=== PATIENT | female | born 1950 | race Caucasian/White ===

== ENCOUNTER → 2018-08-01 09:46 | Outpatient (CLI) | payer MEDICARE, SELFPAY ==
--- NOTE | 2018-08-01 09:49 | BI_ITS ---
MAMMOGRAPHY - BILATERAL SCREENING 3-D CHINTAN SYNTHESIS REASON FOR EXAM: Female, 67 years old. Bilateral Screening 3-D tomosynthesis PERTINENT HISTORY: Asymptomatic. Right breast biopsy 15 years ago. Loss 30 pounds. No significant family history. TECHNIQUE: 2-D mammograms and 3-D Chintan synthesis of the breast (s) were performed. CAD was performed. COMPARISON: 07/31/2017. FINDINGS: The breast composition is composed of scattered fibroglandular density. Scattered benign calcifications are seen. No dense spiculated dominant masses or suspicious microcalcification cluster are identified. No new architectural distortion, asymmetric density, adenopathy, skin thickening or nipple retraction identified. There has been no significant change identified since the prior study. BI/SCREENING MAMM (CAD), BILAT IMPRESSION: No mammographic sign of malignancy. Routine yearly mammograms recommended. ASSESSMENT CATEGORY: BIRADS Category 2: Benign. A letter regarding these results will be sent to the patient by the facility within 30 days. FOLLOW UP RECOMMENDATION: Yearly follow up mammogram recommended. (A) Negative mammographic results should not deter biopsy as a palpable lesion if present should be followed based on clinical grounds and biopsy performed if clinically persistent for 3 months or increasing size. Approximately 10% of breast cancers are not detected by mammography. A normal mammogram should not delay biopsy of a clinically suspicious abnormality. Dense breast tissue may obscure neoplasm. Electronically Signed: Neto Nicole, at 19:59 EDT Tel , Service support ,
--- NOTE | 2018-08-01 10:08 | BD_ITS ---
STUDY: DUAL ENERGY X-RAY ABSORPTIOMETRY / DXA REASON FOR EXAM: Female, 67 years old. Postmenopausal screening TECHNIQUE: Bone Mineral Density (BMD) measurements of lumbar spine and bilateral hips were obtained. COMPARISON: 2001 FINDINGS: Lumbar Spine (L1-L4): g/cm2 (1.010) / T-score (-1.4) / Z-score (0.2) Findings are suggestive of osteopenia with a moderate fracture risk. Left Femur Total: g/cm2 (0.721) / T-score (-2.3) / Z-score (-0.8) Left Femoral Neck: g/cm2 (0.765) / T-score (-2.0) / Z-score (-0.3) Right Femur Total: g/cm2 (0.758) / T-score (-2.0) / Z-score (-0.5) Right Femoral Neck: g/cm2 (0.815) / T-score (-1.6) / Z-score (0.1) The T-Scores on the most recent prior examination were: Lumbar Spine (L1-L4): There has been worsening of bone density since the previous examination. BD/Dexa Bone Density Study IMPRESSION: The patient is considered osteopenic as outlined below according to World Jaziel Organization (WHO) criteria with a moderate fracture risk. There has been worsening of bone density since the previous examination. Reference Information: The T-score is the number of standard deviations above or below the standard which is normal for young adults at their peak bone mineral density. The World Health Organization (WHO) interprets the T-scores as follows: Above -1 Normal bone density Between -1 and -2.5 Osteopenia Equal to / or below -2.5 Osteoporosis As a practical clinical guideline, osteopenia may be graded as follows: Mild -1 through -1.5 Moderate -1.6 through -2.0 Severe -2.1 through -2.4 The Z-score is the number of standard deviations above or below age-matched controls. A Z-score of less than -1.5 would be considered abnormal. References: 1. NIH Osteoporosis and Related Bone Diseases http://www.osteo.org 2. International Society for Clinical Densitometry http://www.iscd.org 3. National Osteoporosis Foundation http://www.nof.org Electronically Signed: Angel Guillermo MD at 10:14 EDT , Service support ,
== END ==
PROVIDERS: Family Provider Family Medicine; PCP Family Medicine; Visit Provider Nurse Practitioner Women's Health
DX: Z12.31 Encounter for screening mammogram for malignant neoplasm of breast (principal); Z78.0 Asymptomatic menopausal state
CPT/HCPCS: 77063; 77067; 77080

== ENCOUNTER → 2019-08-21 11:23 | Outpatient (CLI) | payer MEDICARE, SELFPAY ==
[2019-08-05 10:40] VITALS: BMI 21.5
--- NOTE | 2019-08-21 11:32 | BI_ITS ---
MAMMOGRAPHY - BILATERAL SCREENING REASON FOR EXAM: Female, 68 years old. Routine annual screening examination. PERTINENT HISTORY: Non-contributory. Remote right breast biopsy. TECHNIQUE: Digital bilateral breast chintan (3D mammographic acquisition) in the CC and MLO projections. 2-D mediolateral oblique (MLO) and craniocaudad (CC) views of both breasts were obtained. CAD: Full Field Digital Mammography with Computer Added Detection was performed. COMPARISON: Comparison is made with prior study dated August 01, 2018 and July 31, 2017. FINDINGS: Breast Composition: There are scattered areas of fibroglandular density. There are no dominant masses or suspicious calcifications. No other significant abnormalities are identified. There has been no significant change since the prior study. BI/SCREEN MAMM (CAD) W/CHINTAN BILAT IMPRESSION: Stable bilateral screening mammogram. Yearly follow-up mammogram recommended. (A) ASSESSMENT CATEGORY: BIRADS Category 1: Negative. A letter regarding these results will be sent to the patient by the facility within 30 days. Approximately 10% of breast cancers are not detected by mammography. A normal mammogram should not delay biopsy of a clinically suspicious abnormality. [id number] Electronically Signed: Fazal Mcmillan, at 13:19 EDT , Service support ,
== END ==
PROVIDERS: Family Provider Family Medicine; PCP Family Medicine; Referring Provider Nurse Practitioner Women's Health; Visit Provider Nurse Practitioner Women's Health
DX: Z12.31 Encounter for screening mammogram for malignant neoplasm of breast (principal)
CPT/HCPCS: 77063; 77067

== ENCOUNTER → 2020-08-23 10:19 | Outpatient (CLI) | payer MEDICARE, SELFPAY ==
[2020-05-04 13:33] VITALS: BMI 21.5
--- NOTE | 2020-08-23 10:20 | BI_ITS ---
MAMMOGRAPHY - BILATERAL SCREENING REASON FOR EXAM: Female, 69 years old. Routine annual screening examination. PERTINENT HISTORY: Non-contributory. History of remote right breast biopsy. TECHNIQUE: Digital bilateral breast chintan (3D mammographic acquisition) in the CC and MLO projections. 2-D mediolateral oblique (MLO) and craniocaudad (CC) views of both breasts were obtained. CAD: Full Field Digital Mammography with Computer Added Detection was performed. COMPARISON: Comparison is made with prior study dated 08/21/2019 and 08/01/2018. FINDINGS: Breast Composition: There are scattered areas of fibroglandular density. There are no dominant masses or suspicious calcifications. No other significant abnormalities are identified. There has been no significant change since the prior study. BI/SCREEN MAMM (CAD) W/CHINTAN BILAT IMPRESSION: Stable bilateral screening mammogram. Yearly follow-up mammogram recommended. (A) ASSESSMENT CATEGORY: BIRADS Category 1: Negative. A letter regarding these results will be sent to the patient by the facility within 30 days. Approximately 10% of breast cancers are not detected by mammography. A normal mammogram should not delay biopsy of a clinically suspicious abnormality. [id number] Electronically Signed: Fazal Mcmillan, at 12:19 EDT , Service support ,
== END ==
PROVIDERS: PCP Family Medicine; Referring Provider Nurse Practitioner Women's Health; Visit Provider Nurse Practitioner Women's Health
DX: Z12.31 Encounter for screening mammogram for malignant neoplasm of breast (principal)
CPT/HCPCS: 77063; 77067

== ENCOUNTER → 2020-08-30 11:05 | Outpatient (CLI) | payer MEDICARE, SELFPAY ==
[2020-08-23 10:46] VITALS: BMI 21.0
--- NOTE | 2020-08-30 11:06 | US_ITS ---
STUDY: ULTRASOUND OF THE FEMALE PELVIS - COMPLETE REASON FOR EXAM: Female, 69 years old. LEFT ADNEXAL MASS VS UTERUS LMP: TECHNIQUE: Transabdominal and Transvaginal TECHNICAL QUALITY: Adequate. COMPARISON: None. FINDINGS: The uterus is anteverted and is in a midline position. The uterus measures 6 x 4 x 1.8 cm. Normal uterine cervix. The endometrium measures mm in thickness, and is 1.4 mm. There is an echogenic posterior uterine mass measures 1.7 x 2 x 1.7 cm most likely represent a fibroid. There is no demonstrated myometrial mass. I.U.D. - The patient does not have an I.U.D. The right ovary is visualized. The right ovary measures 2.1 x 1.5 x 2.8 cm. There is no right ovarian cyst or ovarian mass. There is no visualized right adnexal mass or complex lesion. There is normal arterial and normal venous vascularity. The left ovary is not visualized. There is no fluid in the cul-de-sac. US/Pelvic (Non ) IMPRESSION: There is an echogenic posterior uterine mass measures 1.7 x 2 x 1.7 cm most likely represent a fibroid. Electronically Signed: Joni Fink, at 8:01 EST Tel , Service support ,
--- NOTE | 2020-08-30 11:06 | US_ITS ---
STUDY: ULTRASOUND OF THE FEMALE PELVIS - COMPLETE REASON FOR EXAM: Female, 69 years old. LEFT ADNEXAL MASS VS UTERUS LMP: TECHNIQUE: Transabdominal and Transvaginal TECHNICAL QUALITY: Adequate. COMPARISON: None. FINDINGS: The uterus is anteverted and is in a midline position. The uterus measures 6 x 4 x 1.8 cm. Normal uterine cervix. The endometrium measures mm in thickness, and is 1.4 mm. There is an echogenic posterior uterine mass measures 1.7 x 2 x 1.7 cm most likely represent a fibroid. There is no demonstrated myometrial mass. I.U.D. - The patient does not have an I.U.D. The right ovary is visualized. The right ovary measures 2.1 x 1.5 x 2.8 cm. There is no right ovarian cyst or ovarian mass. There is no visualized right adnexal mass or complex lesion. There is normal arterial and normal venous vascularity. The left ovary is not visualized. There is no fluid in the cul-de-sac. US/Transvaginal Non- IMPRESSION: There is an echogenic posterior uterine mass measures 1.7 x 2 x 1.7 cm most likely represent a fibroid. Electronically Signed: Joni Fink, at 8:01 EST Tel , Service support ,
== END ==
PROVIDERS: PCP Family Medicine; Referring Provider Nurse Practitioner Women's Health; Visit Provider Nurse Practitioner Women's Health
DX: N94.89 Other specified conditions associated with female genital organs and menstrual cycle (principal)
CPT/HCPCS: 76830; 76856

== ENCOUNTER → 2021-08-24 12:13 | Outpatient (CLI) | payer MEDICARE, SELFPAY ==
--- NOTE | 2021-08-24 12:16 | BI_ITS ---
MAMMOGRAPHY - BILATERAL SCREENING REASON FOR EXAM: Female, 70 years old. Routine annual screening examination. PERTINENT HISTORY: Non-contributory. TECHNIQUE: Digital bilateral breast chintan (3D mammographic acquisition) in the CC and MLO projections. 2-D mediolateral oblique (MLO) and craniocaudad (CC) views of both breasts were obtained. CAD: Full Field Digital Mammography with Computer Added Detection was performed. COMPARISON: Comparison is made with prior study 08/23/2020 and 08/21/2019. FINDINGS: Breast Composition: There are scattered areas of fibroglandular density. There are no dominant masses or suspicious calcifications. No other significant abnormalities are identified. There has been no significant change since the prior study. BI/SCRN MAMM (CAD)W/CHINTAN BILAT IMPRESSION: Stable bilateral screening mammogram. Yearly follow-up mammogram recommended. (A) ASSESSMENT CATEGORY: BIRADS Category 1: Negative. A letter regarding these results will be sent to the patient by the facility within 30 days. Approximately 10% of breast cancers are not detected by mammography. A normal mammogram should not delay biopsy of a clinically suspicious abnormality. [id number] Electronically Signed: Fazal Mcmillan MD at 14:26 EDT , Service support ,
== END ==
PROVIDERS: PCP Family Medicine; Referring Provider Nurse Practitioner Women's Health; Visit Provider Nurse Practitioner Women's Health
DX: Z12.31 Encounter for screening mammogram for malignant neoplasm of breast (principal)
CPT/HCPCS: 77063; 77067

== ENCOUNTER → 2021-08-31 12:23 | Outpatient (CLI) | payer MEDICARE, SELFPAY ==
--- NOTE | 2021-08-31 12:26 | US_ITS ---
STUDY: ULTRASOUND OF THE FEMALE PELVIS - COMPLETE REASON FOR EXAM: Female, 70 years old. Adnexal mass left LMP: Patient is postmenopausal. TECHNIQUE: Transabdominal and Transvaginal TECHNICAL QUALITY: Adequate. COMPARISON: Comparison is made with prior examination dated 08/30/2020. FINDINGS: The uterus is anteverted and is in a midline position. The uterus measures 5.2 cm x 3.7 cm x 2 cm. Normal uterine cervix. The endometrium is slightly thickened and measures 2.7 mm in thickness, and is hyperechoic. . A tiny trace of endometrial fluid is seen. There is no demonstrated endometrial mass. There is a 1.9 cm x 2.1 cm x 1.8 cm posterior uterine fibroid. There is also evidence of a 3 mm x 3 mm x 2 mm cystic nodule adjacent to the endometrium. I.U.D. - The patient does not have an I.U.D. The right ovary is non-visualized. The left ovary is visualized. The left ovary measures 1.4 cm x 1.1 sign of by 1.4 cm. There is no left ovarian cyst or ovarian mass. There is no visualized left adnexal mass or complex lesion. There is normal arterial and normal venous vascularity. There is no fluid in the cul-de-sac. The pre void volume of the bladder was 392 ml. US/Pelvic (Non ) IMPRESSION: Mildly thickened endometrium. Small trace of fluid is seen within the endometrial cavity. 1.9 cm x 2.1 cm x 1.8 cm posterior uterine fibroid. There is evidence of a 3 mm x 3 mm x 2 mm cystic nodule adjacent to the endometrium. Electronically Signed: Fazal Mcmillan MD at 15:04 EDT , Service support ,
--- NOTE | 2021-08-31 12:26 | US_ITS ---
STUDY: ULTRASOUND OF THE FEMALE PELVIS - COMPLETE REASON FOR EXAM: Female, 70 years old. Adnexal mass left LMP: Patient is postmenopausal. TECHNIQUE: Transabdominal and Transvaginal TECHNICAL QUALITY: Adequate. COMPARISON: Comparison is made with prior examination dated 08/30/2020. FINDINGS: The uterus is anteverted and is in a midline position. The uterus measures 5.2 cm x 3.7 cm x 2 cm. Normal uterine cervix. The endometrium is slightly thickened and measures 2.7 mm in thickness, and is hyperechoic. . A tiny trace of endometrial fluid is seen. There is no demonstrated endometrial mass. There is a 1.9 cm x 2.1 cm x 1.8 cm posterior uterine fibroid. There is also evidence of a 3 mm x 3 mm x 2 mm cystic nodule adjacent to the endometrium. I.U.D. - The patient does not have an I.U.D. The right ovary is non-visualized. The left ovary is visualized. The left ovary measures 1.4 cm x 1.1 sign of by 1.4 cm. There is no left ovarian cyst or ovarian mass. There is no visualized left adnexal mass or complex lesion. There is normal arterial and normal venous vascularity. There is no fluid in the cul-de-sac. The pre void volume of the bladder was 392 ml. US/Transvaginal Non- IMPRESSION: Mildly thickened endometrium. Small trace of fluid is seen within the endometrial cavity. 1.9 cm x 2.1 cm x 1.8 cm posterior uterine fibroid. There is evidence of a 3 mm x 3 mm x 2 mm cystic nodule adjacent to the endometrium. Electronically Signed: Fazal Mcmillan MD at 15:04 EDT , Service support ,
== END ==
PROVIDERS: PCP Family Medicine; Referring Provider Nurse Practitioner Women's Health; Visit Provider Nurse Practitioner Women's Health
DX: N94.89 Other specified conditions associated with female genital organs and menstrual cycle (principal)
CPT/HCPCS: 76830; 76856

== ENCOUNTER → 2022-08-30 | Outpatient (CLI) | payer MEDICARE, SELFPAY ==
--- NOTE | 2022-08-30 08:40 | BI_ITS ---
MAMMOGRAPHY - BILATERAL SCREENING REASON FOR EXAM: Female, 71 years old. Routine annual screening examination. PERTINENT HISTORY: Non-contributory. Remote right breast biopsy. TECHNIQUE: Digital bilateral breast chintan (3D mammographic acquisition) in the CC and MLO projections. 2-D mediolateral oblique (MLO) and craniocaudad (CC) views of both breasts were obtained. CAD: Full Field Digital Mammography with Computer Added Detection was performed. COMPARISON: Comparison is made with prior study 08/24/2021 and 08/23/2020. FINDINGS: Breast Composition: The breasts are heterogeneously dense, which may obscure small masses. There are no dominant masses or suspicious calcifications. No other significant abnormalities are identified. There has been no significant change since the prior study. BI/SCRN MAMM (CAD)W/CHINTAN BILAT IMPRESSION: Stable bilateral screening mammogram. Yearly follow-up mammogram recommended. (A) ASSESSMENT CATEGORY: BIRADS Category 1: Negative. A letter regarding these results will be sent to the patient by the facility within 30 days. Approximately 10% of breast cancers are not detected by mammography. A normal mammogram should not delay biopsy of a clinically suspicious abnormality. [id number] Electronically Signed: Fazal Mcmillan MD at 9:26 EDT ,
== END | disposition home or self-care (01) ==
LOC: OPBI 08:39
PROVIDERS: PCP Family Medicine; Visit Provider Nurse Practitioner Women's Health
DX: Z12.31 Encounter for screening mammogram for malignant neoplasm of breast (principal)
CPT/HCPCS: 77063; 77067

== ENCOUNTER 2023-01-02 12:03 | Emergency (ER) | payer MEDICARE, SELFPAY ==
[2023-01-02 12:05] VITALS: BP 106/40; PULSE 58; RESP 18; TEMP 36.6; O2SAT 100
[2023-01-02 12:19] VITALS: PULSE 61; RESP 10; O2SAT 98; BMI 19.8
--- NOTE | 2023-01-02 12:38 | EKG12_ITS ---
Test Reason : SYNCOPE Blood Pressure : / mmHG Vent. Rate : 059 BPM Atrial Rate : 059 BPM P-R Int : 198 ms QRS Dur : 096 ms QT Int : 436 ms P-R-T Axes : 046 044 -77 degrees QTc Int : [address] & T wave abnormality, consider inferior ischemia ST & T wave abnormality, consider anterolateral ischemia Abnormal ECG Confirmed by AILYN REID, CHELSEA ([id number]), editor news GARFIELD MAYFIELD ([id number]) on 01/04/2023 8:57:25 AM Referred By: Confirmed By:CHELSEA ROBERTSON MD
--- NOTE | 2023-01-02 12:39 | EDS_ITS ---
HPI History of Present Illness Chief Complaint: Syncope Informant: patient, spouse/S.O. (daughter) and EMS Onset/Context/Timing Onset: Today (JPTA) Context: Gradual Onset Timing: Continuous Quality: lightheaded, followed by syncope Narrative Narrative: Patient has syncopal episode. She was helping out at her daughter's work, cooking in the kitchen when this happened. She was cooking spaghetti over the stove and had been standing there for 45 or 60 minutes. She felt lightheaded, and her daughter had her sit down in a chair, which is where she was when she then passed out shortly thereafter. She was in and out of consciousness for 5 or 10 minutes, they got her out of the chair and laid her on the floor. There was no fall or injury. After 10 to 15 minutes total, she came back to and then basically gradually came around and is back to normal right now. EMS was called initially, they did a blood sugar it was 117, she is a diabetic type II. She denies any other prodromal symptoms other than lightheadedness. She denies any headache, vision changes, focal neurologic symptoms, chest pain, shortness of breath, nausea, or sweating. She states she has a sore throat that has been there for about 3 days, she states she is very poor at remembering to drink water, and since her throat has been bothering her she has been drinking even the last including this morning. She presents here around noon. In addition she has chronic low back pain, she states whenever she stands for an extended period of time, her back ends up hurting her more and she needs to rest, she does recall that hurting prior to sitting down in the chair, it is not bothering her that much right now. She denies any numbness in her lower extremities. [facility] Medical History Hypertension pre diabetic Home Medications calcium citrate 315 mg-vitamin D3 5 mcg (200 unit) tablet (Calcium Citrate + D) 1 tab PO TID 07/29/18 [History Last Taken Unknown] diltiazem HCl 240 mg capsule,extended release 24 hr (Cardizem CD) 240 mg PO DAILY 07/29/18 [History Last Taken Unknown] hydrochlorothiazide 25 mg tablet 25 mg PO DAILY 07/29/18 [History Last Taken Unknown] lisinopril 40 mg tablet 40 mg PO DAILY 07/29/18 [History Last Taken Unknown] metformin 500 mg tablet 500 mg PO BID 07/29/18 [History Last Taken Unknown] metoprolol tartrate 25 mg tablet 25 mg PO BID 07/29/18 [History Last Taken Unknown] pravastatin 40 mg tablet (Pravachol) 40 mg PO DAILY 07/29/18 [History Last Taken Unknown] Allergy/AdvReac Type Severity Reaction Status Date / Time No Known Allergies Allergy Verified 01/02/23 12:10 Family History Father Myocardial infarction Surgical History H/O eye surgery Social History Smoking Status: Never smoker alcohol intake: current alcohol intake frequency: holidays/special occasions only substance use type: does not use caffeine: Yes what type of physical activity do you participate in: none seatbelt use: always do you feel safe at home: Yes additional social history: Julissa loving are retired ROS ROS ED Constitutional Constitutional ED: Denies chills or fever(s) Eyes Eyes: Denies change in vision or diplopia ENT ENT ED: Reports sore throat; Denies rhinorrhea Cardiovascular Cardiovascular: Reports syncope; Denies chest pain or palpitations Respiratory/Chest Respiratory/Chest: Denies cough or dyspnea Gastrointestinal Gastrointestinal: Denies abdominal pain, diarrhea, nausea or vomiting Genitourinary Genitourinary ED: Denies dysuria or hematuria Musculoskeletal Musculoskeletal: Reports as per HPI and back pain; Denies neck pain Integumentary Denies abscess or rash Neurologic Neurologic: Denies headache(s), paresthesias or weakness Psychiatric Psychiatric: Denies anxiety or suicidal thoughts EXAM Physical Exam Const Vital Signs: 01/02/23 12:05 01/02/23 12:19 01/02/23 12:19 Temperature 97.8 F Temperature Source Temporal Pulse Rate 58 L 61 Respiratory Rate 18 10 L Respiratory Effort Normal Non-Labored Blood Pressure 106/40 L Blood Pressure Mean 62 Pulse Ox 100 98 Oxygen Delivery Method Room Air Room Air 01/02/23 13:02 01/02/23 13:35 01/02/23 15:11 Temperature Temperature Source Pulse Rate 59 L 63 66 Respiratory Rate 17 18 16 Respiratory Effort Blood Pressure 107/53 L 106/53 L 109/55 L Blood Pressure Mean 71 70 73 Pulse Ox 98 97 95 Oxygen Delivery Method Room Air Room Air Room Air Positive well nourished and well developed Constitutional Narrative: Thin. Well-appearing. Conversive in full sentences. General Appearance ED: well developed and NAD HEENT Reports moist mucous membranes HEENT Narrative: Posterior oropharynx normal without exudates, erythema, petechiae, or asymmetry. No trismus. normocephalic and atraumatic Eyes PERRL and EOMs intact bilaterally Neck full ROM, no lymphadenopathy and supple Resp normal respiratory effort and clear to auscultation bilaterally Cardio regular rate, regular rhythm and no murmurs Rate: other Other Details: Borderline bradycardia with heart rate at 60 GI non-tender and non-distended Auscultation: normoactive bowel sounds Palpation: soft Back/Spine no CVA tenderness General Back: other FROM Extremity normal to inspection General Extremety ED: Negative for edema, pulses abnormal or tenderness General Extremity: Negative for edema or pulses abnormal Neuro oriented x3, CN's II-XII intact bilaterally and no sensory deficits noted Neuro Narrative: Normal [id number] and [id number] bilaterally. Sensorium / Orientation: awake and alert Motor Exam: strength 5/5 throughout Psych mental status grossly normal Skin no rashes or lesions noted and no wounds MDM MDM MDM Narrative Medical decision making narrative: Patient's throat looks normal, but we have been seeing a lot of patients with COVID start with a sore throat with the current variants. Although there is not a surge right now, I did a rapid test on her and it is positive consistent with COVID-19. She was given a liter of IV fluid, she does have a little renal insufficiency but I do not know if this is new or not since I do not have old labs on her. Potassium was a little low so she was given some oral replacement for that. Her initial EKG shows some nonspecific abnormalities but I do not have an old one to compare it with, troponin initially is normal, this was later repeated for a delta because of her subtle EKG abnormalities. If negative, plan is for discharge home with supportive care for her COVID, she is fully vaccinated and not likely to be in danger, and she is not dyspneic or having any chest discomfort to suggest pulmonary embolus acutely. I really think all of this was related to being borderline dehydrated before she got sick, now more so because her throat is sore and she is drinking less, followed by being over a hot stove and possibly vasodilated. If her second troponin is negative plan is for discharge home. Lab Data Attestation: I reviewed the patient's lab results. Labs: Laboratory Results - last 24 hr 01/02/23 01/02/23 12:47 12:47 WBC 10.0 RBC 4.13 L Hgb 12.4 Hct 37.9 MCV 91.8 MCH 30.0 MCHC 32.7 RDW Std Deviation 45.7 H RDW Coeff of Izzy 13.4 Plt Count 217 MPV 11.6 Immature Gran % (Auto) 0.700 Neut % (Auto) 80.4 H Lymph % (Auto) 12.6 L Robeson % (Auto) 5.7 Eos % (Auto) 0.1 Baso % (Auto) 0.5 Absolute Neuts (auto) 8.0 H Absolute Lymphs (auto) 1.26 Nucleated RBC % 0 Sodium 134 L Potassium 3.3 L Chloride 96 L Carbon Dioxide 26.0 Anion Gap 12 BUN 31 H Creatinine 1.45 H Estim Creat Clear Calc 30.95 Est GFR (MDRD) Af Amer 45 L Est GFR (MDRD) Non-Af 38 L BUN/Creatinine Ratio 21.4 H Glucose 134 H Calcium 9.7 Troponin I High Sens 10 Rhythm Strip Rhythm Strip: Sinus Rhythm Rate: 60 Ectopy: None EKG Initial EKG: Attestation: I personally reviewed and interpreted this EKG as follows: Interpretation: Sinus Rhythm, No Acute Injury Pattern and Non-Specific ST Changes (most leads; inf, sept-lat) Prior: No Prior Discharge Plan Triage Chief Complaint: Syncope ED Provider: Yohan Willis Dx/Rx/DC Orders Clinical Impression: Syncope, COVID-19, Mild dehydration, Hypokalemia Instructions: Coronavirus Disease 2019 (COVID-19): Caring for Yourself or Others, ED Dehydration (Adult) Prescriptions: No Action calcium citrate-vitamin D3 [Calcium Citrate + D] 315-200 mg-unit tablet 1 tab PO TID pravastatin [Pravachol] 40 mg tablet 40 mg PO DAILY hydrochlorothiazide 25 mg tablet 25 mg PO DAILY metformin 500 mg tablet 500 mg PO BID lisinopril 40 mg tablet 40 mg PO DAILY diltiazem HCl [Cardizem CD] 240 mg capsule,extended release 24hr 240 mg PO DAILY metoprolol tartrate 25 mg tablet 25 mg PO BID Primary Care Provider: Shailesh Walters Referrals: Shailesh Walters MD [Primary Care Provider] - 1 Week Disposition Disposition: Home, Self Care
[2023-01-02 13:01] LABS: Absolute Lymphocyte Count 1.26 X10^3/uL (0.83-4.51); Basophil# 0.05 X10^3/uL; Basophil% 0.5 % (0-1); Eosinophil# 0.01 X10^3/uL; Eosinophils% 0.1 % (0-5); Hematocrit 37.9 % (37-47); Hemoglobin 12.4 g/dL (12.0-15.0); Lymphocyte # 1.26 X10^3/ul (0.83-4.51); Lymphocyte % 12.6 % (19-41); Mean Corp Hgb Conc 32.7 g/dL (32-36); Mean Corpuscular Volume 91.8 fL (81-99); Mean Platelet Vol. 11.6 fl (6.2-12.0); Monocyte# 0.57 X10^3/uL; Monocyte% 5.7 % (0-10); NRBC Flagged by Analyzer 0 % (0-5); Neutrophil # 8.02 X10^3/uL (2.7-7.7); Neutrophil % 80.4 % (47-70); Platelet Count 217 K/mm3 (150-450); RBC Distribution Width CV 13.4 % (11.6-14.6); RBC Distribution Width SD 45.7 fl (35.1-43.9); Red Blood Count 4.13 M/mm3 (4.2-5.4)
[2023-01-02 13:02] VITALS: BP 107/53; PULSE 59; RESP 17; O2SAT 98
[2023-01-02] MEDS: 0.9% Normal Saline 1,000 ML 1000 ML IV (13:02)
[2023-01-02 13:22] LABS: Anion Gap 12 (5-15); BUN 31 mg/dL (7-18); BUN/Creat Ratio 21.4 RATIO (10-20); Calcium,Total 9.7 mg/dL (8.5-10.1); Chloride 96 mmol/L (98-107); Creatinine, Serum 1.45 mg/dL (0.55-1.02); EST Glomerular Filtration Rate 38 mL/min (>60); Est Glom Filt Rate - Afr Amer 45 mL/min (>60); Estimated Creatinine Clearance 30.95 ml/min; Glucose 134 mg/dL (74-106); Potassium 3.3 mmol/L (3.5-5.1); Sodium Level 134 mmol/L (136-145); Troponin-I HS (w/2H Reflex) 10 pg/mL (3.0-54.0)
[2023-01-02 13:35] VITALS: BP 106/53; PULSE 63; RESP 18; O2SAT 97
[2023-01-02] MEDS: Potassium Chloride Oral Tablet 20 MEQ 40 MEQ PO (13:53)
[2023-01-02 14:57] LABS: Reflex Troponin-HS? (from REC) Y
[2023-01-02 15:11] VITALS: BP 109/55; PULSE 66; RESP 16; O2SAT 95
[2023-01-02 15:39] LABS: Troponin-I HS 11 pg/mL (3.0-54.0)
[2023-01-02 16:13] VITALS: BP 119/58; PULSE 65; RESP 14; O2SAT 97
== END 2023-01-02 16:25 | disposition home or self-care (01) ==
PROVIDERS: Emergency Provider Emergency Medicine; PCP Family Medicine; Visit Provider Emergency Medicine
DX: U07.1 COVID-19 (principal); E11.9 Type 2 diabetes mellitus without complications; E86.0 Dehydration; E87.6 Hypokalemia; R55 Syncope and collapse; I10 Essential (primary) hypertension
CPT/HCPCS: 80048; 84484; 85025; 87811; 93005; 96360; 99285; J7030; A4216

== ENCOUNTER 2023-08-28 10:22 | Emergency (ER) | payer MEDICARE, SELFPAY ==
[2023-08-28 10:30] VITALS: BP 101/79; PULSE 55; RESP 15; TEMP 35.5; O2SAT 97; BMI 20.4
--- NOTE | 2023-08-28 11:04 | EKG12_ITS ---
Test Reason : SYNCOPE Blood Pressure : / mmHG Vent. Rate : 053 BPM Atrial Rate : 053 BPM P-R Int : 194 ms QRS Dur : 096 ms QT Int : 438 ms P-R-T Axes : 033 036 -26 degrees QTc Int : 410 ms Sinus bradycardia Nonspecific ST and T wave abnormality Abnormal ECG Confirmed by ENZO REID, KELSEA ([id number]), editor producer VICKIE NORTON ([id number]) on 08/29/2023 6:54:43 AM Referred By: Confirmed By:KELSEA GIRALDO MD
--- NOTE | 2023-08-28 11:04 | EX.ED.DYSGE1 ---
HPI History of Present Illness Chief Complaint: Syncope Informant: patient, family and EMS Narrative Narrative: 72-year-old female presenting to the emergency room with a chief complaint of syncope. 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 She was cooking pizza when she began to feel that she needed to have a bowel movement. She states that she excused herself had a successful bowel movement and returned. However she was experiencing some lower abdominal pain. She states her daughter noticed that she looked like she might pass out and asked if she wanted to step out. She sat her down tried to turn off the heat. She states that the room that they were written felt warm. Patient's daughter reports that she looked pale and then her eyes glazed over and she passed out. She did have an episode of emesis. She had a second brief unresponsive episode for EMS. The patient states that the current time she feels quite well. She denies any new medications. She states she took all of her medications today including her blood pressure pills which includes diltiazem HCTZ and lisinopril and metoprolol this morning without eating. Blood sugar was normal for EMS. Patient denies palpitations, heart racing, dyspnea, or chest pain prior or during the events Prehospital EKG demonstrated a normal sinus rhythm without definitive features of ACS. [facility] Medical History Hypertension pre diabetic Home Medications calcium citrate 315 mg-vitamin D3 5 mcg (200 unit) tablet (Calcium Citrate + D) 1 tab PO TID 07/29/18 [History Last Taken Unknown] diltiazem HCl 240 mg capsule,extended release 24 hr (Cardizem CD) 240 mg PO DAILY 07/29/18 [History Last Taken Unknown] hydrochlorothiazide 25 mg tablet 25 mg PO DAILY 07/29/18 [History Last Taken Unknown] lisinopril 40 mg tablet 40 mg PO DAILY 07/29/18 [History Last Taken Unknown] metformin 500 mg tablet 500 mg PO BID 07/29/18 [History Last Taken Unknown] metoprolol tartrate 25 mg tablet 25 mg PO BID 07/29/18 [History Last Taken Unknown] pravastatin 80 mg tablet 80 mg PO DAILY 08/28/23 [History Last Taken Unknown] Allergy/AdvReac Type Severity Reaction Status Date / Time No Known Allergies Allergy Verified 08/28/23 10:24 Family History Father Myocardial infarction Surgical History H/O eye surgery Social History Smoking Status: Never smoker alcohol intake: current alcohol intake frequency: holidays/special occasions only substance use type: does not use caffeine: Yes what type of physical activity do you participate in: none seatbelt use: always do you feel safe at home: Yes additional social history: Dyllan- both are retired ROS ROS ED Constitutional Constitutional ED: Denies chills or weight loss Eyes Eyes: Denies change in vision or diplopia ENT ENT ED: Denies ear pain, rhinorrhea or sore throat Cardiovascular Cardiovascular: Reports other Details: Syncope ; Denies chest pain, orthopnea, palpitations or racing heartbeat Respiratory/Chest Respiratory/Chest: Denies cough, dyspnea or orthopnea Gastrointestinal Gastrointestinal: Reports abdominal pain and vomiting; Denies diarrhea or nausea Genitourinary Genitourinary ED: Denies dysuria, hematuria or urinary frequency Musculoskeletal Musculoskeletal: Denies arthralgias or myalgias Integumentary Denies abscess or rash Neurologic Neurologic: Denies headache(s) or weakness Psychiatric Psychiatric: Denies anxiety, depression, suicidal ideation or suicidal thoughts Endocrine Endocrinology: Denies polydipsia, polyphagia or polyuria Allergic/Immunologic Allergic/Immunologic ED: Denies mouth swelling, tongue swelling or urticaria EXAM Physical Exam Const Vital Signs: 08/28/23 10:30 08/28/23 10:37 08/28/23 11:30 Temperature 96 F L Temperature Source Temporal Pulse Rate 55 L 51 L Respiratory Rate 15 14 Respiratory Effort Normal Non-Labored Respiratory Pattern Normal Blood Pressure 101/79 117/57 L Blood Pressure Mean 86 77 Pulse Ox 97 99 Oxygen Delivery Method Room Air Room Air 08/28/23 11:58 Temperature Temperature Source Pulse Rate 51 L Respiratory Rate 20 H Respiratory Effort Respiratory Pattern Blood Pressure 99/51 L Blood Pressure Mean 67 Pulse Ox 98 Oxygen Delivery Method Room Air Positive well nourished and well developed General Appearance ED: well developed HEENT Reports normocephalic, head/scalp atraumatic and moist mucous membranes Eyes PERRL and EOMs intact bilaterally Neck no lymphadenopathy, supple and no JVD Resp normal respiratory effort and clear to auscultation bilaterally Cardio regular rate, regular rhythm and no murmurs GI normal to inspection, nondistended, normoactive bowel sounds and non-tender Palpation: soft Back/Spine no CVA tenderness and normal ROM Extremity normal to inspection General Extremety ED: Negative for edema General Extremity: Negative for edema Neuro oriented x3 and CN's II-XII intact bilaterally Sensorium / Orientation: alert Motor Exam: strength 5/5 throughout Psych mental status grossly normal Mood & Affect: Negative for depressed or tearful Skin no rashes or lesions noted and no wounds MDM MDM MDM Narrative Medical decision making narrative: My independent interpretation of the chest x-ray is no acute process. Hemoglobin 12.8. BUN of 30 with a creatinine 1.07. Troponin at 6. She has been in a normal sinus rhythm. She is asymptomatic. Based upon the history and the normal exam and essentially normal work-up I think this most likely vasovagal mediated. I recommend following up as needed return if recurrent symptoms or worsening History & Record Review Discussion w/independent historian: EMS personnel, Patient, Family and Significant other Lab Data Attestation: I reviewed the patient's lab results. Labs: Laboratory Results - last 24 hr 08/28/23 10:40 WBC 10.0 RBC 4.10 L Hgb 12.8 Hct 37.9 MCV 92.4 MCH 31.2 MCHC 33.8 RDW Std Deviation 44.5 H RDW Coeff of Izzy 13.1 Plt Count 281 MPV 11.5 Immature Gran % (Auto) 0.500 Neut % (Auto) 66.3 Lymph % (Auto) 24.6 Hamblen % (Auto) 7.2 Eos % (Auto) 0.9 Baso % (Auto) 0.5 Absolute Neuts (auto) 6.7 Absolute Lymphs (auto) 2.47 Nucleated RBC % 0 Sodium 135 L Potassium 3.6 Chloride 102 Carbon Dioxide 27.0 Anion Gap 6 BUN 30 H Creatinine 1.07 H Estim Creat Clear Calc 41.80 Est GFR (MDRD) Af Amer 64 Est GFR (MDRD) Non-Af 53 L BUN/Creatinine Ratio 28.0 H Glucose 131 H Calcium 10.1 Troponin I High Sens 6 EKG Initial EKG: Attestation: I personally reviewed and interpreted this EKG as follows: Comments: Sinus bradycardia with a ventricular rate of 53 bpm. No definitive features of ACS noted Discharge Plan Triage Chief Complaint: Syncope Other Complaint: General Illness ED Provider: Sanjay Ramirez Dx/Rx/DC Orders Clinical Impression: Vasovagal syncope, Abdominal pain Instructions: ED Fainting, Vagal Reaction Prescriptions: No Action calcium citrate-vitamin D3 [Calcium Citrate + D] 315-200 mg-unit tablet 1 tab PO TID hydrochlorothiazide 25 mg tablet 25 mg PO DAILY metformin 500 mg tablet 500 mg PO BID Patient Comments: PATIENT STATES IS TAKING 1 TABLET ONCE PER DAY lisinopril 40 mg tablet 40 mg PO DAILY diltiazem HCl [Cardizem CD] 240 mg capsule,extended release 24hr 240 mg PO DAILY metoprolol tartrate 25 mg tablet 25 mg PO BID pravastatin 80 mg tablet 80 mg PO DAILY Patient Comments: take 1 tablet by mouth once daily Primary Care Provider: Shailesh Walters Referrals: Shailesh Walters MD [Primary Care Provider] - As Needed Disposition Disposition: Home, Self Care
[2023-08-28 11:13] LABS: Absolute Lymphocyte Count 2.47 X10^3/uL (0.83-4.51); Absolute Neutrophil Count 6.7 X10^3/uL (2.0-7.7); Basophil# 0.05 X10^3/uL; Basophil% 0.5 % (0-1); Eosinophil# 0.09 X10^3/uL; Eosinophils% 0.9 % (0-5); Hematocrit 37.9 % (37-47); Hemoglobin 12.8 g/dL (12.0-15.0); Lymphocyte # 2.47 X10^3/ul (0.83-4.51); Lymphocyte % 24.6 % (19-41); Mean Corp Hgb Conc 33.8 g/dL (32-36); Mean Corpuscular Hgb 31.2 pg (27.0-32.0); Mean Corpuscular Volume 92.4 fL (81-99); Mean Platelet Vol. 11.5 fl (6.2-12.0); Monocyte# 0.72 X10^3/uL; Monocyte% 7.2 % (0-10); NRBC Flagged by Analyzer 0 % (0-5); Neutrophil # 6.65 X10^3/uL (2.7-7.7); Neutrophil % 66.3 % (47-70); Platelet Count 281 K/mm3 (150-450); RBC Distribution Width CV 13.1 % (11.6-14.6); RBC Distribution Width SD 44.5 fl (35.1-43.9)
--- NOTE | 2023-08-28 11:25 | RAD_ITS ---
STUDY: X-RAY CHEST REASON FOR EXAM: Female, 72 years old. Syncope TECHNIQUE: Single AP portable view of the chest. COMPARISON: None. FINDINGS: EKG electrodes are seen. The lungs are clear and expanded. There is no demonstrated pleural abnormality. Normal size heart. Normal mediastinum and caitie. Normal visualized pulmonary arteries. There is atherosclerotic calcification of the aortic arch with tortuosity. There is a dextroscoliosis of the thoracic spine. Normal visualized ribs, clavicles, and shoulders. There is no demonstrated abnormality of the visualized soft tissue structures of the upper abdomen. RAD/Chest 1 View (Portable) IMPRESSION: No acute abnormality is seen. Electronically Signed: Fazal Mcmillan MD at 12:42 EDT ,
[2023-08-28 11:30] VITALS: BP 117/57; PULSE 51; RESP 14; O2SAT 99
[2023-08-28 11:30] LABS: Anion Gap 6 (5-15); BUN 30 mg/dL (7-18); Calcium,Total 10.1 mg/dL (8.5-10.1); Chloride 102 mmol/L (98-107); Creatinine, Serum 1.07 mg/dL (0.55-1.02); EST Glomerular Filtration Rate 53 mL/min (>60); Est Glom Filt Rate - Afr Amer 64 mL/min (>60); Glucose 131 mg/dL (74-106); Potassium 3.6 mmol/L (3.5-5.1); Sodium Level 135 mmol/L (136-145); Troponin-I HS 6 pg/mL (3.0-54.0)
[2023-08-28 11:58] VITALS: BP 99/51; PULSE 51; RESP 20; O2SAT 98
[2023-08-28 12:40] VITALS: BP 112/63; PULSE 72; RESP 15; O2SAT 98
== END 2023-08-28 12:41 | disposition home or self-care (01) ==
PROVIDERS: Emergency Provider Emergency Medicine; PCP Family Medicine; Visit Provider Emergency Medicine
DX: R55 Syncope and collapse (principal); R11.10 Vomiting, unspecified; R10.9 Unspecified abdominal pain; I10 Essential (primary) hypertension
CPT/HCPCS: 71045; 80048; 84484; 85025; 93005; 99285

== ENCOUNTER → 2023-09-03 | Outpatient (CLI) | payer MEDICARE, SELFPAY ==
--- NOTE | 2023-09-03 08:38 | BI_ITS ---
MAMMOGRAPHY - BILATERAL SCREENING REASON FOR EXAM: Female, 72 years old. Routine annual screening examination. PERTINENT HISTORY: Non-contributory. Remote right breast biopsy. TECHNIQUE: Digital bilateral breast chintan (3D mammographic acquisition) in the CC and MLO projections. 2-D mediolateral oblique (MLO) and craniocaudad (CC) views of both breasts were obtained. CAD: Full Field Digital Mammography with Computer Added Detection was performed. COMPARISON: Comparison is made with prior study dated August 30, 2022 and August 24, 2021. FINDINGS: Breast Composition: The breasts are heterogeneously dense, which may obscure small masses. There are no dominant masses or suspicious calcifications. No other significant abnormalities are identified. There has been no significant change since the prior study. BI/SCRN MAMM (CAD)W/CHINTAN BILAT IMPRESSION: Stable bilateral screening mammogram. Yearly follow-up mammogram recommended. (A) ASSESSMENT CATEGORY: BIRADS Category 2: Benign. A letter regarding these results will be sent to the patient by the facility within 30 days. Approximately 10% of breast cancers are not detected by mammography. A normal mammogram should not delay biopsy of a clinically suspicious abnormality. [id number] Electronically Signed: Fazal Mcmillan MD at 10:31 EST ,
== END | disposition home or self-care (01) ==
PROVIDERS: PCP Family Medicine; Referring Provider Nurse Practitioner Women's Health; Visit Provider Nurse Practitioner Women's Health
DX: Z12.31 Encounter for screening mammogram for malignant neoplasm of breast (principal)
CPT/HCPCS: 77063; 77067

== ENCOUNTER → 2024-11-24 | Outpatient (CLI) | payer OTHER, SELFPAY ==
--- NOTE | 2024-11-24 08:18 | BI_ITS ---
MAMMOGRAPHY - BILATERAL SCREENING REASON FOR EXAM: Female, 73 years old. Routine annual screening examination. PERTINENT HISTORY: Non-contributory. TECHNIQUE: Digital bilateral breast chintan (3D mammographic acquisition) in the CC and MLO projections. 2-D mediolateral oblique (MLO) and craniocaudad (CC) views of both breasts were obtained. CAD: Full Field Digital Mammography with Computer Added Detection was performed. COMPARISON: Comparison is made with prior study September 03, 2023 and August 30, 2022. FINDINGS: Breast Composition: The breasts are heterogeneously dense, which may obscure small masses. There are no dominant masses or suspicious calcifications. No other significant abnormalities are identified. There has been no significant change since the prior study. BI/SCRN MAMM (CAD)W/CHINTAN BILAT IMPRESSION: Stable bilateral screening mammogram. Yearly follow-up mammogram recommended. (A) ASSESSMENT CATEGORY: BIRADS Category 1: Negative. A letter regarding these results will be sent to the patient by the facility within 30 days. Approximately 10% of breast cancers are not detected by mammography. A normal mammogram should not delay biopsy of a clinically suspicious abnormality. [id number] Electronically Signed: Fazal Mcmillan MD at 8:56 EST ,
== END | disposition home or self-care (01) ==
PROVIDERS: PCP Family Medicine; Referring Provider Nurse Practitioner Women's Health; Visit Provider Nurse Practitioner Women's Health
DX: Z12.31 Encounter for screening mammogram for malignant neoplasm of breast (principal)
CPT/HCPCS: 77063; 77067

== ENCOUNTER 2025-05-26 10:49 | Inpatient (IN) | payer MEDICARE, SELFPAY ==
[2025-05-26] VITALS (9 sets, daily range): BP systolic 105–118; BP diastolic 42–64; PULSE 49–63; RESP 16–18; TEMP 36.5–36.9; O2SAT 93–98; BMI 23.3; BMI 22.3
--- NOTE | 2025-05-26 11:01 | RAD_ITS ---
PROCEDURE: ANKLE 2 VIEWS 05/26/2025 REASON FOR EXAM: TRAUMA TECHNIQUE: ANKLE 2 VIEWS COMPARISON: None FINDINGS: Bones: Mild demineralization. No fracture or suspicious osseous lesion small calcaneal spurs. Joints: Ankle mortise is well-preserved. Soft tissues: No suspicious soft tissue swelling or foreign body Other: RAD/Ankle 2 Views IMPRESSION: Calcaneal spurs, otherwise unremarkable right ankle Reading Location: [id number]
--- NOTE | 2025-05-26 11:01 | RAD_ITS ---
PROCEDURE: HIP, UNI W/ PELVIS 2-3 VIEWS 05/26/2025 REASON FOR EXAM: TRAUMA TECHNIQUE: HIP, UNI W/ PELVIS 2-3 VIEWS FINDINGS: Bones: The bones are demineralized. There is an acute subchondral femoral neck fracture of the right femur with varus angulation and slight displacement. Joints: Arthritic narrowing of the right hip joint consistent with patient's age but no dislocation or subluxation noted. Soft tissues: There is associated soft tissue swelling. Other: No demonstrated fracture or joint space abnormality in the left hip or SI joints. Retained stool noted throughout the colon RAD/HIP, UNI W/ Pelvis 2-3 Views IMPRESSION: Acute, minimally displaced subchondral femoral neck fracture of the right femur with soft tissue swelling. Orthopedic surgery consultation recommended Reading Location: [id number]
--- NOTE | 2025-05-26 11:03 | EDS_ITS ---
HPI HPI - Fall History of Present Illness Chief Complaint: Fall Narrative Narrative: 74-year-old female presents status post fall. 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 She went to throw something away and when she turned, her toes got caught up. She fell forward. She is not sure if she struck her head, but she states that she did not pass out. She had no prodromal symptoms such as chest pain or shortness of breath. This was a mechanical fall. She complains of right hip pain and states she was unable to completely get out for about half an hour until someone found her. They could not hear her yelling for help. She now has pain diffusely throughout her right hip, worse with movement. She may have mild right ankle pain. She has no pain in her left lower extremity. She denies other injuries. [facility] Medical History pre diabetic Hypertension Home Medications ?Medication ?Instructions ?Recorded ?Last Taken ?Type calcium 315 mg (as 1 tab PO TID 07/29/18 History citrate)-vitamin D3 5 mcg (200 unit) tablet (Calcium Citrate + D) diltiazem HCl 240 mg 240 mg PO DAILY 07/29/18 History capsule,extended release 24 hr (Cardizem CD) hydrochlorothiazide 25 mg tablet 25 mg PO DAILY 05/26/25 History lisinopril 40 mg tablet 40 mg PO DAILY 07/29/1804/29 History metformin 500 mg tablet 500 mg PO BID 07/29/1805/26 History pravastatin 80 mg tablet 80 mg PO DAILY 08/28/2304/29 History metoprolol tartrate 50 mg tablet 50 mg PO BID 05/26/25 05/26/25 History Allergy/AdvReac Type Severity Reaction Status Date / Time No Known Allergies Allergy Verified 05/26/25 10:54 Family History Father Myocardial infarction Surgical History H/O eye surgery Social History Smoking Status: Never smoker alcohol intake: current alcohol intake frequency: holidays/special occasions only substance use type: does not use caffeine: Yes what type of physical activity do you participate in: none seatbelt use: always do you feel safe at home: Yes additional social history: Dyllan- both are retired ROS ROS ED ROS Narrative Review of systems positive for right hip pain, right ankle swelling. Positive mechanical fall, unable to get up independently. No loss of consciousness. No neck pain. Denies other injury. EXAM Physical Exam Narrative Exam Narrative: GCS 15. ABCs are intact. HEENT examination is normocephalic, atraumatic, PERRL, EOMI. Neck soft and supple without meningismus. No vertebral point tenderness or bony step-off. Full range of motion without pain. Cardiovascular examination regular rate and rhythm. Lungs are clear to auscultation bilaterally. Abdomen is soft and nontender with positive bowel sounds. No guarding or rebound. Pelvis is stable but diffuse tenderness to palpation diffusely right hip. Positive pain with logrolling of femur. She appears neurovascularly intact distally with palpable dorsalis pedis pulse. Mild swelling right ankle, no malleoli or tenderness, right. Const Vital Signs: 05/26/25 10:50 05/26/25 11:55 05/26/25 11:58 Temperature 97.7 F L Temperature Source Oral Pulse Rate 63 49 L Respiratory Rate 18 16 Respiratory Effort Normal Respiratory Depth Normal Respiratory Pattern Normal Blood Pressure 118/64 109/49 L Blood Pressure Mean 82 69 Pulse Ox 98 98 97 Oxygen Delivery Method Room Air Room Air Room Air MDM MDM MDM Narrative Medical decision making narrative: The differential diagnosis includes but not limited to right closed hip fracture versus pelvic fracture versus right hip contusion. I have low suspicion for rhabdomyolysis as she was only on the floor for approximately 30 minutes, but states she was able to fall forward. I obtained a CT of the brain and reviewed the radiology report to rule out intracranial hemorrhage. There are chronic changes but no acute fracture or hemorrhage. On my individual interpretation of the right ankle x-ray, there is no evidence of acute fracture. On my individual interpretation of the x-ray of the right hip and pelvis does show a femoral neck fracture. I reviewed the radiology reports of the ankle x-ray as well as the right hip x-ray which confirm my independent interpretation. As she has a femoral neck fracture and is unable to ambulate I did obtain preoperative laboratories and ordered a chest x-ray and EKG as well. In review of her laboratory work she does have a normal white count of 7.5 with hemoglobin stable at 12.3, hematocrit 36.4, platelet count 239. BMP is remarkable for glucose of 126 with BUN of 29 and creatinine 0.9. She was given 2 doses of f entanyl 50 mcg for analgesia as well as ondansetron. She requested that I call her daughter, Jesenia to inform her of the hip fracture, but there is no contact information listed. I discussed the patient with Dr. Elizabeth Swift with orthopedics who stated the patient could stay here for surgery. I will discuss the patient with the hospitalist for admission. I discussed patient with Dr. Burnett. Patient is in stable condition. History & Record Review Discussion w/independent historian: Patient Additional record(s) reviewed:: Prior ED visit (Noncontributory to current chief complaint) Lab Data Attestation: I reviewed the patient's lab results. Labs: Laboratory Results - last 24 hr 05/26/25 05/26/25 10:59 11:10 WBC 7.5 RBC 3.95 L Hgb 12.3 Hct 36.4 L MCV 92.2 MCH 31.1 MCHC 33.8 RDW Std Deviation 45.8 H RDW Coeff of Izzy 13.5 Plt Count 239 MPV 11.2 Immature Gran % (Auto) 0.500 Neut % (Auto) 66.5 Lymph % (Auto) 23.7 Kimble % (Auto) 7.2 Eos % (Auto) 1.6 Baso % (Auto) 0.5 Absolute Neuts (auto) 5.0 Absolute Lymphs (auto) 1.77 Nucleated RBC % 0 Sodium 139 Potassium 4.0 Chloride 104 Carbon Dioxide 21.9 Anion Gap 14 BUN 29 H Creatinine 0.90 Estim Creat Clear Calc 49.78 L Est GFR (MDRD) Non-Af 66 BUN/Creatinine Ratio 32.7 H Glucose 126 H Calcium 10.1 Total Creatine Kinase 155 Radiography Chest X-Ray - ED: Read by ED Physician and Read by Radiologist Diagnostic Testing: Clinical Impression(s) from Imaging Studies Ankle X-Ray 05/26/25 11:01 IMPRESSION: Calcaneal spurs, otherwise unremarkable right ankle Reading Location: [facility] Hip/Pelvis X-Ray 05/26/25 11:01 IMPRESSION: Acute, minimally displaced subchondral femoral neck fracture of the right femur with soft tissue swelling. Orthopedic surgery consultation recommended Reading Location: [facility] Brain CT 05/26/25 11:38 IMPRESSION: CHRONIC CHANGES. NO ACUTE FINDINGS. Reading Location: [id number] Management Discussion w/another healthcare provider: Hospitalist and Technical Product Manager (Dr. Swift, Orthopaedics) Discharge Plan Dx/Rx/DC Orders Clinical Impression: Fall, Closed displaced fracture of right femoral neck, Hypertension Disposition Disposition: [facility]
[2025-05-26 11:20] LABS: Hematocrit 36.4 % (37-47); Hemoglobin 12.3 g/dL (12.0-15.0); Immature Granulocytes Count 0.040 X10^3/uL (0.0-0.0); Mean Corp Hgb Conc 33.8 g/dL (32-36); Mean Corpuscular Volume 92.2 fL (81-99); Mean Platelet Vol. 11.2 fl (6.2-12.0); NRBC Flagged by Analyzer 0 % (0-5); Platelet Count 239 K/mm3 (150-450); RBC Distribution Width CV 13.5 % (11.6-14.6); RBC Distribution Width SD 45.8 fl (35.1-43.9); Red Blood Count 3.95 M/mm3 (4.2-5.4); White Blood Count 7.5 K/mm3 (4.4-11.0)
[2025-05-26] MEDS: fentaNYL 100 MCG/2 ML Ampul 50 MCG IV ×2 (11:23→12:57)
--- NOTE | 2025-05-26 11:38 | CT_ITS ---
PROCEDURE: BRAIN/HEAD WITHOUT CONTRAST 05/26/2025 REASON FOR EXAM: TRAUMA Head injury due to a fall. TECHNIQUE: BRAIN/HEAD WITHOUT CONTRAST Coronal and Sagittal reconstruction series were provided. One or more dose reduction techniques were used (e.g., Automated exposure control, adjustment of the mA and/or kV according to patient size, use of iterative reconstruction technique. RADIATION DOSE SUMMARY: CTDlvol: 44.99 mGy DLP: 846.73 mGycm COMPARISON: None FINDINGS: Brain: Low density in the periventricular white matter suggests mild chronic small vessel ischemic changes. Atherosclerotic calcification of the cavernous portions of the internal carotid arteries bilaterally. CSF Spaces: Mild generalized cerebral atrophy Sinuses/Mastoids: Clear at visualized levels Bones: Unremarkable CT/Brain/Head without Contrast IMPRESSION: CHRONIC CHANGES. NO ACUTE FINDINGS. Reading Location: [id number]
[2025-05-26 12:08] LABS: Anion Gap 14 (5-15); BUN 29 mg/dL (4-19); BUN/Creat Ratio 32.7 RATIO (10-20); CPK Total, Creatine Kinase 155 U/L (24-195); Calcium,Total 10.1 mg/dL (7.6-11.0); Carbon Dioxide 21.9 mmol/L (21.0-32.0); Chloride 104 mmol/L (98-108); Estimated Creatinine Clearance 49.78 ml/min (50-250); Glucose 126 mg/dL (70-99); Potassium 4.0 mmol/L (3.3-5.1)
--- NOTE | 2025-05-26 12:34 | EKG12_ITS ---
Test Reason : GENERAL Blood Pressure : */* mmHG Vent. Rate : 60 BPM Atrial Rate : 60 BPM P-R Int : 180 ms QRS Dur : 78 ms QT Int : 408 ms P-R-T Axes : 44 44 -42 degrees QTcB Int : 408 ms Normal sinus rhythm Septal infarct , age undetermined Abnormal ECG Confirmed by ENZO REID, KELSEA ([id number]), copy editor GARFIELD MAYFIELD ([id number]) on 05/27/2025 8:34:09 AM Referred By: Confirmed By: KELSEA GIRALDO MD
--- NOTE | 2025-05-26 12:34 | RAD_ITS ---
PROCEDURE: CHEST 1 VIEW (PORTABLE) 05/26/2025 REASON FOR EXAM: PREOPERATIVE TECHNIQUE: Frontal view of the chest. COMPARISON: August 28, 2023 FINDINGS: Heart size is upper normal. Central vascularity is within normal limits. There is no focal infiltrate or consolidation. There is no pneumothorax or effusion. Aortic calcifications are noted. There is no acute bony abnormality. Dextroscoliosis of the thoracic spine is noted. RAD/Chest 1 View (Portable) IMPRESSION: No acute process is identified in the chest. Reading Location: [facility]
--- NOTE | 2025-05-26 13:13 | PCM.HP.STD ---
HPI - General General Date of Admission: 05/26/25 Date of Service: 05/26/25 Chief Complaint: Fall with right hip pain HPI Narrative RUBIN WADSWORTH, is a 74 F who presented to [facility] ED on 05/26/2025 with right hip pain after a mechanical fall. Patient lives at home alone. Medical history is significant only for hypertension and prediabetes. 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 She was there today when she suffered a mechanical fall onto her right side. Had severe right hip pain after this and was unable to get up. Hip/pelvic x-ray showed an acute minimally displaced subchondral right femoral neck fracture with soft tissue swelling. Case was discussed with Dr. Switf with orthopedics who noted that patient could stay here for surgery. Hospitalist was then contacted for admission. I saw the patient at bedside in the ED, patient's 2 daughters were present. Patient was somewhat tearful initially due to the right hip pain and feeling overwhelmed by the situation. She was given dose of IV fentanyl for pain and notes these were moderately helpful for her. She denies any pain at rest currently but does have pain with much of any movement. No other acute concerns currently. Will be admitted for further management. [facility] Medical History pre diabetic Hypertension Home Medications ?Medication ?Instructions ?Recorded ?Last Taken ?Type calcium 315 mg (as 1 tab PO TID 07/29/18 05/26/25 History citrate)-vitamin D3 5 mcg (200 unit) tablet (Calcium Citrate + D) diltiazem HCl 240 mg 240 mg PO DAILY 07/29/18 05/26/25 History capsule,extended release 24 hr (Cardizem CD) hydrochlorothiazide 25 mg tablet 25 mg PO DAILY 07/29/18 05/26/25 History lisinopril 40 mg tablet 40 mg PO DAILY 07/29/18 05/26/25 History metformin 500 mg tablet 500 mg PO BID 07/29/18 05/26/25 History pravastatin 80 mg tablet 80 mg PO DAILY 08/28/23 05/26/25 History metoprolol tartrate 50 mg tablet 50 mg PO BID 05/26/25 05/26/25 History Allergy/AdvReac Type Severity Reaction Status Date / Time No Known Allergies Allergy Verified 05/26/25 10:54 Family History Father Myocardial infarction Surgical History H/O eye surgery Social History Smoking Status: Never smoker alcohol intake: current alcohol intake frequency: holidays/special occasions only substance use type: does not use caffeine: Yes what type of physical activity do you participate in: none seatbelt use: always do you feel safe at home: Yes additional social history: Dyllan- both are retired ROS Constitutional Constitutional: Denies chills or fever(s) Cardiovascular Cardiovascular: Denies chest pain Respiratory/Chest Respiratory/Chest: Denies shortness of breath at rest Gastrointestinal Gastrointestinal: Denies abdominal pain Neurologic Neurologic: Denies dizziness, focal weakness, headache(s), numbness or paresthesias Vital Signs Vital Signs Vital Signs: 05/26/25 10:50 05/26/25 11:55 05/26/25 11:58 Temperature 97.7 F L Temperature Source Oral Pulse Rate 63 49 L Respiratory Rate 18 16 Respiratory Effort Normal Respiratory Depth Normal Respiratory Pattern Normal Blood Pressure 118/64 109/49 L Blood Pressure Mean 82 69 Pulse Ox 98 98 97 Oxygen Delivery Method Room Air Room Air Room Air Weight Weight: 65.6 kg Body Mass Index (BMI) 23.3 Physical Exam Const alert, oriented x3, no apparent distress and average body habitus Constitutional Narrative: Pleasant elderly female, fatigued and anxious appearing but otherwise laying back comfortably in bed, conversing normally, in no acute distress. General Appearance: cooperative and comfortable HEENT normocephalic, head/scalp atraumatic, hearing grossly normal bilaterally, nasal mucous membranes and turbinates normal and moist oral mucous membranes Eyes PERRL, EOMs intact bilaterally and conjunctivae normal Neck full ROM Chest inspection of chest normal Resp normal respiratory effort, normal air movement, no use of accessory muscles and clear to auscultation bilaterally Cardio regular rate, regular rhythm, no murmurs and peripheral pulses 2+ throughout GI normal to inspection, nondistended, normoactive bowel sounds, soft to palpation, non-tender and non-distended Back/Spine normal ROM Extremity Extremity Narrative: Right hip/groin area with tenderness to palpation. No obvious external deformities noted. Did not attempt any range of motion. Skin no rashes or lesions noted Psych mental status grossly normal Mood & Affect: anxious Results Lab / Micro Data 05/26/25 10:59 05/26/25 11:10 Labs: Laboratory Results - last 24 hr 05/26/25 10:59: WBC 7.5, RBC 3.95 L, Hgb 12.3, Hct 36.4 L, MCV 92.2, MCH 31.1, MCHC 33.8, RDW Std Deviation 45.8 H, RDW Coeff of Izzy 13.5, Plt Count 239, MPV 11.2, Immature Gran % (Auto) 0.500, Neut % (Auto) 66.5, Lymph % (Auto) 23.7, Wilson % (Auto) 7.2, Eos % (Auto) 1.6, Baso % (Auto) 0.5, Absolute Neuts (auto) 5.0, Absolute Lymphs (auto) 1.77, Nucleated RBC % 0 05/26/25 11:10: Sodium 139, Potassium 4.0, Chloride 104, Carbon Dioxide 21.9, Anion Gap 14, BUN 29 H, Creatinine 0.90, Estim Creat Clear Calc 49.78 L, Est GFR (MDRD) Non-Af 66, BUN/Creatinine Ratio 32.7 H, Glucose 126 H, Calcium 10.1, Total Creatine Kinase 155 Imaging Radiology Impression Ankle X-Ray 05/26/25 11:01 IMPRESSION: Calcaneal spurs, otherwise unremarkable right ankle Reading Location: [facility] Hip/Pelvis X-Ray 05/26/25 11:01 IMPRESSION: Acute, minimally displaced subchondral femoral neck fracture of the right femur with soft tissue swelling. Orthopedic surgery consultation recommended Reading Location: [facility] Brain CT 05/26/25 11:38 IMPRESSION: CHRONIC CHANGES. NO ACUTE FINDINGS. Reading Location: [id number] Assessment & Plan Assessment/Plan (1) Closed displaced fracture of right femoral neck: (2) Fall: PLAN: Plan Patient is a 74-year-old female who presented [facility] ED on 05/26/2025 with right hip pain after a mechanical fall. 1. Right femoral neck fracture ? Admit under inpatient status to [facility]. Orthopedic surgery consulted. PT/OT/case management consulted. Hip/pelvic x-ray showed an acute minimally displaced subchondral right femoral neck fracture with soft tissue swelling. Planning for surgery tomorrow, preoperative evaluation as below. N.p.o. at midnight. Pain control with scheduled Tylenol, oxycodone as needed and IV Dilaudid as needed. SCDs for DVT prophylaxis for now. Calcium level normal. Vitamin D level ordered. Lives at home alone; suspect she will need SNF placement on discharge. 2. Preoperative evaluation ? NSQIP score: Patient is at below average risk of complication, serious complication and discharged to nursing or rehab facility based on risk factors of age and hypertension. ? Labs/imaging: Hemoglobin 12.3, at baseline. Creatinine 0.90, at baseline. No other lab abnormalities noted. Chest x-ray clear and patient hemodynamically stable on room air at rest. CT head unremarkable. No further labs or imaging needed preoperatively. Follow-up CBC and BMP postoperatively. ? Cardiac eval: EKG with normal sinus rhythm and no ST changes in the ED. No prior echo in chart but patient with no history of heart failure and stable on room air at rest with clear chest x-ray as above. No further cardiac workup needed preoperatively. ? Medications: Will hold home lisinopril and hydrochlorothiazide on day of procedure, then should be okay to resume on postop day 1. Continue home metoprolol. ? Prior procedural complications: None. ? Recommendation: Patient is medically optimized for procedure. 3. Hypertension/hyperlipidemia ? Normotensive on arrival to the ED. Did become mildly hypotensive after receiving IV pain medication. Heart rate with borderline bradycardia in the high 50s to around 60. Unclear why patient is on both diltiazem and Lopressor. Continue home Lopressor for now and hold Cardizem. Holding lisinopril and hydrochlorothiazide for now as above. Continue home statin. 4. Prediabetes ? Glucose 126 in the ED. A1c ordered. Will hold on sliding scale insulin or glucose checks for now. DVT prophylaxis: SCDs for now, will defer to orthopedics CODE STATUS: Patient and daughters noted that she is a DNR CCA DNI. However, patient is agreeable to being full code for procedure with plan to transition back to DNR CCA DNI postoperatively. Expected disposition: TBD Total clinical time spent by myself addressing the patient's medical issues, reviewing all the data, and collaborating with patient's care team: 75 minutes. Charges/Coding Visit Charges Inpatient E&M: 13213 Init Hosp L3
--- NOTE | 2025-05-26 13:14 | CM.ED ---
Social work Reason for referral: no emergency contacts Referral source: Dr. Liam CARUSO was consulted to try to find patient's daughter, Sarah, at patient's request. There are no emergency contacts listed, but Doretha from [facility] Registration stated hearing from patient that Sarah works with patient at the same day care patient was at when the fall occurred. SW looked at squad report and found the address, resulting in finding patient's place of part-time employment, [employer]. On the way to patient's room, SW found patient's other daughter, Mili, who was bedside. Mili provided contact information for both Mili and Sarah that could be added to patient's face sheet. Mili stated patient living alone which is a concern for Mili with patient likely needing rehab after potential surgery. SW explained that there are a few options regarding rehab that would need discussed with patient. SW introduced self and role at [facility] when entering patient's room. SW asked permission to add patient's daughters as emergency contacts and patient agreed to this. SW asked patient if patient worked part-time at [employer] and patient confirmed. SW asked if patient would like to make this a worker's compensation claim and patient denied. Mili reported having to talk with Sarah to determine this fully, but agreed that likely the patient would not be exploring worker's compensation. Mili stated Sarah would be at [facility] ED soon and patient would determine their final answer at that point. Placed on face sheet: Sarah Rosado, daughter from [employer] (ph: [phone]) Mili Drew, daughter from [employer] (ph: [phone]) Plan: patient likely to be admitted with discharge plan to be determined. Handoff to acute RNCM/SW team for further needs. Priscila Yee, ELECTRIFICATION ADVISER, PROFILE SAW OPERATOR
[2025-05-26 14:07] LABS: Partial Thromboplast Time 28.6 Seconds (24.1-36.2)
[2025-05-26 14:12] LABS: Prothrombin Time (Protime)PT. 13.1 SECONDS (11.7-14.9)
[2025-05-26 14:47] LABS: AST(SGOT) 26 U/L (<=31); Alanine Aminotransfer ALT/SGPT 22 U/L (<=34); Albumin, Serum 3.8 g/dL (3.4-4.8); Alkaline Phosphatase 84 U/L (35-104); Bilirubin, Direct 0.16 mg/dL (0.00-0.30); Globulin 3.3 g/dL (2.2-4.2); Vitamin D,25 Hydroxy 56.9 ng/mL (30-100)
[2025-05-26] MEDS: Calcium Carb/Vitamin D 1 TABLET Tablet PO (16:25)
[2025-05-27] VITALS (47 sets, daily range): BP systolic 85–126; BP diastolic 38–59; PULSE 61–104; RESP 14–21; TEMP 35.8–38.4; O2SAT 79–100
[2025-05-27] MEDS: HYDROmorphone 0.5 MG/0.5 ML SYRINGE IV (01:20)
[2025-05-27] MEDS: 0.9% Normal Saline (1000mL) 1,000 ML 999 ML IV (03:59)
--- NOTE | 2025-05-27 04:02 | EKG12_ITS ---
Test Reason : RYTHM CHANGE Blood Pressure : */* mmHG Vent. Rate : 120 BPM Atrial Rate : * BPM P-R Int : * ms QRS Dur : 96 ms QT Int : 344 ms P-R-T Axes : * 36 -37 degrees QTcB Int : 486 ms Atrial fibrillation with rapid ventricular response ST & T wave abnormality, consider inferior ischemia Abnormal ECG When compared with ECG of 26-May-2025 12:55, MANUAL COMPARISON REQUIRED DATA IS UNCONFIRMED Confirmed by ENZO REID, KELSEA ([id number]), marketing editor VICKIE NORTON ([id number]) on 05/28/2025 6:31:40 AM Referred By: CHANTAL Confirmed By: KELSEA GIRALDO MD
--- NOTE | 2025-05-27 05:05 | EKG12_ITS ---
Test Reason : RHYTHM CHANGE Blood Pressure : */* mmHG Vent. Rate : 69 BPM Atrial Rate : 69 BPM P-R Int : 182 ms QRS Dur : 80 ms QT Int : 386 ms P-R-T Axes : 44 27 10 degrees QTcB Int : 413 ms Normal sinus rhythm Normal ECG When compared with ECG of 27-May-2025 03:40, MANUAL COMPARISON REQUIRED DATA IS UNCONFIRMED Confirmed by ENZO REID, KELSEA ([id number]), videotape editor VICKIE NORTON ([id number]) on 05/28/2025 6:30:32 AM Referred By: AMRKHAM Confirmed By: KELSEA GIRALDO MD
--- NOTE | 2025-05-27 05:09 | PCM.HOSP.N ---
Hospitalist Note I was contacted by third floor RN and informed the patient developed hypotension in the 80 mm systolic range and new onset atrial fibrillation; with rapid ventricular response at ~120 bpm. The decision was then made to give a 1 L bolus of normal saline and start IV Cardizem - but this agent could not be initiated until she moved to PCU. Shortly after arrival to PCU she spontaneously converted back to NSR. Therefore, IV Cardizem was not initiated.
[2025-05-27 05:11] LABS: Hematocrit 32.7 % (37-47); Hemoglobin 11.0 g/dL (12.0-15.0); Mean Corp Hgb Conc 33.6 g/dL (32-36); Mean Corpuscular Volume 91.9 fL (81-99); Mean Platelet Vol. 11.0 fl (6.2-12.0); Platelet Count 195 K/mm3 (150-450); RBC Distribution Width CV 13.4 % (11.6-14.6); RBC Distribution Width SD 46.0 fl (35.1-43.9); Red Blood Count 3.56 M/mm3 (4.2-5.4); White Blood Count 9.8 K/mm3 (4.4-11.0)
[2025-05-27 05:41] LABS: Anion Gap 10 (5-15); BUN 26 mg/dL (4-19); BUN/Creat Ratio 34.8 RATIO (10-20); Calcium,Total 8.6 mg/dL (7.6-11.0); Carbon Dioxide 21.0 mmol/L (21.0-32.0); Chloride 105 mmol/L (98-108); Estimated Creatinine Clearance 56.01 ml/min (50-250); Glucose 108 mg/dL (70-99); Potassium 3.5 mmol/L (3.3-5.1)
--- NOTE | 2025-05-27 08:11 | ECHOD_ITS ---
Reason For Study Reason For Study: ATRIAL FIB-FLUTTER, PRE-OP Procedure This was a 2D Doppler, Color Flow transthoracic echocardiogram. Exam performed portable in patient room. Left Ventricle Normal LV size. Left ventricular systolic function is normal. The left ventricular ejection fraction is 70 %. No regional wall motion abnormalities noted. Right Ventricle Normal RV size. Normal systolic function. Atria Normal left atrium. Normal right atrium. Bubble contrast study negative for right to left interatrial shunt. Mitral Valve There is mild mitral annular calcification. Tricuspid Valve Normal tricuspid valve. Mild (1+) tricuspid valve insufficiency. Pulmonary artery systolic pressure is 42 mmHg. Aortic Valve Trisinus/trileaflet aortic valve. Mild focal aortic valve calcification. Mild (1+) eccentric aortic valve insufficiency. Pulmonic Valve Normal pulmonic valve. Great Vessels Normal aortic root. The pulmonary artery is normal size. Inferior vena cava collapse with respiration. Pericardium/Pleural No pericardial effusion. Medication Performed a rapid injection of agitated mix of 9 cc saline and 1cc air to assess for atrial septal defect. MMode/2D Measurements & Calculations LVIDd: 3.8 cm IVSd: 1.1 cm Ao root diam: 3.3 cm LVIDs: 2.7 cm LVPWd: 0.95 cm RVDd: 3.3 cm FS: 29.8 % LAV(MOD-bp): 34.2 ml LVAd ap4: 22.2 cm2 SV(MOD-sp4): 38.7 ml LAV(MOD-bp) Indexed: 20.0 ml/m2 LVLd ap4: 7.1 cm SI(MOD-sp4): 22.7 ml/m2 LAV(MOD-sp2): 29.0 ml EDV(MOD-sp4): 59.1 ml LAV(MOD-sp4): 33.6 ml EDV(sp4-el): 59.2 ml LVAs ap4: 11.7 cm2 LVLs ap4: 5.9 cm ESV(MOD-sp4): 20.3 ml ESV(sp4-el): 19.7 ml EF(MOD-sp4): 65.6 % EF(sp4-el): 66.7 % SV(sp4-el): 39.5 ml LA A4 area: 14.3 cm2 LA dimension(2D): 3.1 cm RA A4 area: 12.3 cm2 TAPSE: 2.1 cm Time Measurements MV dec time: 0.20 sec Doppler Measurements & Calculations MV E max jude: 83.1 cm/sec Lat Peak E' Jude: 11.4 cm/sec Med Peak E' Jude: 9.8 cm/sec MV A max jude: 65.2 cm/sec E/E' lat: 7.3 E/E' med: 8.5 MV E/A: 1.3 Ao V2 max: 123.2 cm/sec AI max jude: 387.8 cm/sec LV V1 max: 108.6 cm/sec Ao max P.1 mmHg AI max P.1 mmHg LV V1 max P.7 mmHg AI dec slope: 239.1 cm/sec2 AI P1/2t: 475.0 msec PA V2 max: 88.8 cm/sec TR max jude: 308.2 cm/sec TR max P.0 mmHg ECHO/Echo Complete Interpretation Summary Normal LV size. Left ventricular systolic function is normal. The left ventricular ejection fraction is 70 %. Bubble contrast study negative for right to left interatrial shunt. Mild (1+) eccentric aortic valve insufficiency. Ordering Physician: Yuni Anaya Referring Physician: CRUZ FLORENTINO Performed By: Cheryl Pressley RDCS
[2025-05-27] MEDS: Calcium Carb/Vitamin D 1 TABLET Tablet PO (08:43)
--- NOTE | 2025-05-27 09:51 | PCM.PRE.AN2 ---
ASA Classification* ASA Classification ASA Classification: 3 and E Assessment & Plan Anesthesia* Anesthesia Assessment Anesthesia Assessment: Discussed sedation and/or anesthesia options, risks, benefits, and alternatives with patient/parents/legal guardian/POA. Questions invited. The patient/parents/legal guardian/POA seems to understand and agrees to proceed with anesthesia plan. Reviewed the physical assessment, medical history, allergy history and patient home medications list prior to surgery/procedure/anesthetic and documented any changes. Performed airway and anesthesia risk assessments. Anesthesia Type Anesthesia Type: General History Source History Obtained from:: Patient and Parent/ Guardian Anesthesia Focused Assessment* Temperature: 97.8 F Pulse Rate: 69 Blood Pressure: 106/51 Respiratory Rate: 16 Pulse Ox: 97 Oxygen Delivery Method: Nasal Cannula Oxygen Flow Rate (L/min): 2 Airway Assessment Mouth opens: >3 cm Mallampati Score: II Teeth Condition: Intact Neck Range of motion (ROM): Limited ROM Labs Anesthesia Preop lab: CBC WBC 9.8 K/mm3 (4.4-11.0) 05/27/25 05:04 05/27/25 RBC 3.56 M/mm3 (4.2-5.4) L 05/27/25 05:04 05/27/25 Hgb 11.0 g/dL (12.0-15.0) L 05/27/25 05:04 05/27/25 Hct 32.7 % (37-47) L 05/27/25 05:04 05/27/25 Plt Count 195 K/mm3 (150-450) 05/27/25 05:04 05/27/25 CHEMISTRY Potassium 3.5 mmol/L (3.3-5.1) 05/27/25 05:04 05/27/25 Sodium 136 mmol/L (133-145) 05/27/25 05:04 05/27/25 BUN 26 mg/dL (4-19) H 05/27/25 05:04 05/27/25 Creatinine 0.76 mg/dL (0.70-1.20) 05/27/25 05:04 05/27/25 Glucose 108 mg/dL (70-99) H 05/27/25 05:04 05/27/25 COAG PT 13.1 SECONDS (11.7-14.9) 05/26/25 10:59 05/26/25 Pre-Assessment Diagnosis/Proposed Procedure Planned Operative Procedure(s): Left Hip Arthroplasty Anesthesia History Anesthesia History - technician trainee: Anesthesia History - technician trainee Hx Hospitalization Any Problems With Anesthesia No: previous sx 05/26/25 14:03 Cholinesterase deficiency No 05/26/25 14:03 You/Your Family Experience No 05/26/25 14:03 fever (hyperthermia) with Relationship Recent Exposure to Contagious No 05/26/25 14:03 Disease Does patient have nerve No 05/26/25 14:03 stimulator Patient instructed to have device shut off --Does patient have Pacemaker or ICD? When Was Last Pacemaker Check QUESTION #4 FULL TEXT: You/Your Family Experience fever (hyperthermia) with Anesthesia Last Oral Intake Last Oral intake: Last Oral Intake NPO since Meds taken in AM with sips of water? Meds patient instructed to take am of surgery PONV PONV - technician trainee: PONV - technician trainee Female HX of Motion Sickness HX of N/V After Surgery Non-Smoker Duration of Surgery greater than 60 minutes Number of Risk Factors PONV Score Height & Weight Height & Weight: Anesthesia: Height & Weight Height 5 ft 6 in 05/26/25 16:01 Weight: 62.82 kg 05/26/25 16:01 Body Mass Index (BMI) 22.3 05/26/25 13:50 Respiratory Assessment Respiratory Assessment - technician trainee: Respiratory Tract Infection Hx - technician trainee Hx Respiratory Tract Infection No 05/26/25 14:03 STOP Sleep Apnea STOP Sleep Apnea - technician trainee: STOP Sleep Apnea - technician trainee Hx Hypertension Yes 05/26/25 13:50 Hx Sleep Apnea No 05/26/25 13:50 CPAP BIPAP Do you snore loudly (louder Yes 05/26/25 13:50 than talking or can be heard Do you often feel tired/ No 05/26/25 13:50 fatigued/ sleepy during daytime? Has anyone observed you stop No 05/26/25 13:50 breathing during sleep? STOP Results Positive 05/26/25 13:50 QUESTION #5 FULL TEXT : Do you snore loudly (louder than talking or can be heard through closed doors)? Tobacco Use History Tobacco Use History - technician trainee: Tobacco Use History - technician trainee Tobacco Use Smoking Status Never smoker 05/26/25 13:50 Hx Tobacco Use No 05/26/25 13:50 Years Smoking Packs Smoked per Day Smoking Cessation Date was within the last 15 years Hx Smoking Cessation Date Hx Smoking Cessation Counseling Hematologic Medial History Hematologic Hx - technician trainee: Hematologic Medical Hx - construction management assistant Hx of Blood Transfusion No 05/26/25 13:50 Hx of Transfusion in last 3 No 05/26/25 13:50 Months Date of Last Transfusion (if within last 3 months) Ever experience any problems No 05/26/25 13:50 with transfusion(s)? Specify any problems Hx of Preganancy in last 3 N/A 05/26/25 13:50 Months Nurse Filling Out Transfusion FSTEINER 05/26/25 13:50 & Questions: Date: 05/26/25 05/26/25 13:50 Time: 13:52 05/26/25 13:50 Patient unable to answer at this time (ie. confused, unrespo /Reproduction History /Reproductive History - technician trainee: /Reproductive Hx- technician trainee Hx Now No 05/26/25 14:03 Gestational Age (in weeks): EDC: Hx Hx Para Hx Section SAB No 05/26/25 14:03 Active Medications Active Medications: Current Medications Generic Name Dose Route Start Last Admin Trade Name Gusq PRN Reason Stop Dose Admin Acetaminophen 1,000 mg 05/26/25 14:00 05/27/25 08:43 Acetaminophen 500 Mg Tablet PO 1,000 mg Q8 MISAEL Administration Calcium/Vitamin D 1 tablet 05/26/25 17:00 05/27/25 08:43 Calcium Carb/Vitamin D 1 Tablet Tablet PO 1 tablet TIDCM MISAEL Administration Hydromorphone HCl 0.5 mg 05/26/25 13:44 05/27/25 01:20 Hydromorphone 0.5 Mg/0.5 Ml Syringe IV 0.5 mg Q4H PRN PRN Administration Pain Score 6-10 Sodium Chloride 250 mls @ 15 mls/hr 05/26/25 13:54 IV .[id number] PRN Saline Flush Sodium Chloride 250 mls @ 15 mls/hr 05/26/25 13:54 IV .[id number] PRN Additional IVPB Infusion Sodium Chloride 1,000 mls @ 125 mls/hr 05/27/25 08:15 IV .Q8H MISAEL Melatonin 3 mg 05/26/25 13:44 Melatonin 3 Mg Tablet PO QHS PRN PRN INSOMNIA Metoprolol Tartrate 50 mg 05/26/25 22:00 05/27/25 08:40 Metoprolol Tartrate 50 Mg Tablet PO 50 mg BID MISAEL Administration Protocol Ondansetron HCl 4 mg 05/26/25 13:44 05/27/25 01:20 Ondansetron 4 Mg/2 Ml Vial IV 4 mg Q8H PRN PRN Administration NAUSEA/VOMITING Oxycodone HCl 5 mg 05/26/25 13:44 Oxycodone 5 Mg Tablet PO Q4H PRN PRN Pain Score 4-10 Pravastatin Sodium 80 mg 05/27/25 22:00 Pravastatin 80 Mg Tablet PO QHS MISAEL Sodium Chloride 10 - 40 ml 05/26/25 13:54 0.9% Saline Lock 10 Ml Syringe IV UD PRN SALINE FLUSH PFSH Medical History pre diabetic Hypertension Home Medications ?Medication ?Instructions ?Recorded ?Last Taken ?Type calcium 315 mg (as 1 tab PO TID 07/29/18 05/26/25 History citrate)-vitamin D3 5 mcg (200 unit) tablet (Calcium Citrate + D) diltiazem HCl 240 mg 240 mg PO DAILY 07/29/18 05/26/25 History capsule,extended release 24 hr (Cardizem CD) hydrochlorothiazide 25 mg tablet 25 mg PO DAILY 07/29/18 05/26/25 History lisinopril 40 mg tablet 40 mg PO DAILY 07/29/18 05/26/25 History metformin 500 mg tablet 500 mg PO BID 07/29/18 05/26/25 History pravastatin 80 mg tablet 80 mg PO DAILY 08/28/23 05/26/25 History metoprolol tartrate 50 mg tablet 50 mg PO BID 05/26/25 05/26/25 History Allergy/AdvReac Type Severity Reaction Status Date / Time No Known Allergies Allergy Verified 05/26/25 10:54 Family History Father Myocardial infarction Surgical History H/O eye surgery Social History Smoking Status: Never smoker alcohol intake: current alcohol intake frequency: holidays/special occasions only substance use type: does not use caffeine: Yes what type of physical activity do you participate in: none seatbelt use: always do you feel safe at home: Yes additional social history: Dyllan- both are retired Review of Systems (Anesthesia) ROS Narrative System reviewed and no additional complaints, except as documented.
[2025-05-27] MEDS: 0.9% Normal Saline (1000mL) 1,000 ML 125 ML IV (10:02)
[2025-05-27] MEDS: 0.9% Saline Lock 10 ML Syringe IV ×2 (10:02→21:25)
--- NOTE | 2025-05-27 10:03 | CASEMGMT ---
Social Work SW?to room to meet with patient for initial transition planning/care coordination?assessment. Pt's dgt Sarah present and assists in answering questions.?SW?introduced self and role at [facility].? Pt voices understanding and consents to?assessment.?? Care providers, pharmacy, and demographics verified. PCP: [facility] Specialists: none [facility]erred [facility]acy: [facility] Insurance: MMO Medicare Prescription Benefit:? yes Living Will/HPOA:? Pt has completed HCPOA naming her dgt Sarah Rosado. SW requested that Sarah bring documents in. Pt has not completed living will LNOK: Dgts Sarah Rosado and Mili Drew Living Arrangements: Pt lives alone in a one story condo with a flat entrance. 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 Transportation:? Pt does not drive. Pt dgt Sarah provides all needed transportation DME: ? wheel chair and recliner lift chair HHC/SNF: none prior PLAN: Pt to have surgery today for hip fracture repair. SW, Pt and Pt dgt discussed that pt may not be able to return home at time of discharge and may need short term rehab at SNF prior to return home alone. A list of SNF providers including quality and resource use data and consistent with the patient?s preferred geographic region, medical needs, and insurance network were provided from the [facility]. SW to follow up after surgery and therapy to assist pt and family in discharge planning. MIAN Aponte
--- NOTE | 2025-05-27 10:30 | RAD_ITS ---
EXAM: XR Left Hip With Pelvis When Performed, 1 View CLINICAL INDICATION: HEMIARTHROPLASTY TECHNIQUE: Frontal view of the left hip with pelvis when performed. COMPARISON: No relevant prior studies available. FINDINGS: BONES/JOINTS: Total hip replacement. Intact hardware. Anatomic position. No acute fracture. No dislocation. SOFT TISSUES: Soft tissue emphysema and swelling. RAD/Hip Min 2 Views (Portable) IMPRESSION: Postoperative changes as above. Reading Location: [facility]
--- NOTE | 2025-05-27 11:04 | CONS.ORTHO ---
HPI Consult Data Date of Consult: 05/27/25 HPI Narrative HPI Narrative: RUBIN WADSWORTH, is a 74 F who presents with right hip pain after a ground-level fall. She was carrying a few objects and suddenly turned and had a fall yesterday. She was brought into the emergency room and was found to have a right hip femoral neck fracture. I was consulted for orthopedics. I saw the patient in preop today. Patient complains of right hip pain. She denies any injury to left lower or bilateral upper extremities. She denies any other areas of pain. She denies any tingling numbness down the leg. She was able to ambulate without any cane or walker prior to the injury. She denies any baseline balance issues and says that she was very active. Medical history is significant only for hypertension and prediabetes. 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 Overnight in the hospital she did develop atrial fibrillation and underwent treatment in PCU and was evaluated with EKG and echocardiogram. While echocardiogram has not been read by cardiology, both hospitalist and anesthesia believe that she is optimized for surgery. [facility] Medical History pre diabetic Hypertension Home Medications ?Medication ?Instructions ?Recorded ?Last Taken ?Type calcium 315 mg (as 1 tab PO TID 07/29/18 05/26/25 History citrate)-vitamin D3 5 mcg (200 unit) tablet (Calcium Citrate + D) diltiazem HCl 240 mg 240 mg PO DAILY 07/29/18 05/26/25 History capsule,extended release 24 hr (Cardizem CD) hydrochlorothiazide 25 mg tablet 25 mg PO DAILY 07/29/18 05/26/25 History lisinopril 40 mg tablet 40 mg PO DAILY 07/29/18 05/26/25 History metformin 500 mg tablet 500 mg PO BID 07/29/18 05/26/25 History pravastatin 80 mg tablet 80 mg PO DAILY 08/28/23 05/26/25 History metoprolol tartrate 50 mg tablet 50 mg PO BID 05/26/25 05/26/25 History Allergy/AdvReac Type Severity Reaction Status Date / Time No Known Allergies Allergy Verified 05/26/25 10:54 Family History Father Myocardial infarction Surgical History H/O eye surgery Social History Smoking Status: Never smoker alcohol intake: current alcohol intake frequency: holidays/special occasions only substance use type: does not use caffeine: Yes what type of physical activity do you participate in: none seatbelt use: always do you feel safe at home: Yes additional social history: Julissa loving are retired Vital Signs Vital Signs Vital Signs: 05/26/25 11:55 05/26/25 11:58 05/26/25 13:00 Temperature 97.8 F Temperature Source Pulse Rate 49 L 60 Pulse Strength Respiratory Rate 16 18 Respiratory Effort Normal Respiratory Depth Normal Respiratory Pattern Normal Blood Pressure 109/49 L 114/42 L Blood Pressure Mean 69 66 Blood Pressure Source Blood Pressure Position Blood Pressure Location Pulse Ox 98 97 98 Oxygen Delivery Method Room Air Room Air Oxygen Flow Rate (L/min) 05/26/25 13:45 05/26/25 13:58 05/26/25 16:25 Temperature 98.4 F 97.7 F L Temperature Source Oral Oral Pulse Rate 56 L 59 L Pulse Strength Respiratory Rate 18 17 Respiratory Effort Normal Non-Labored Respiratory Depth Normal Respiratory Pattern Normal Blood Pressure 105/53 L 105/48 L Blood Pressure Mean 70 67 Blood Pressure Source Monitor Monitor Blood Pressure Position Semi-Fowlers Semi-Fowlers Blood Pressure Location Right Arm Right Arm Pulse Ox 95 93 Oxygen Delivery Method Room Air Room Air Room Air Oxygen Flow Rate (L/min) 05/26/25 19:45 05/26/25 20:39 05/26/25 22:00 Temperature 97.7 F L Temperature Source Oral Pulse Rate 60 60 60 Pulse Strength Respiratory Rate 16 16 Respiratory Effort Normal Respiratory Depth Respiratory Pattern Blood Pressure 114/58 L 114/58 L Blood Pressure Mean 76 Blood Pressure Source Monitor Blood Pressure Position Semi-Fowlers Blood Pressure Location Right Arm Pulse Ox 94 Oxygen Delivery Method Room Air Room Air Oxygen Flow Rate (L/min) 05/26/25 22:00 05/27/25 01:00 05/27/25 03:39 Temperature 97.7 F L Temperature Source Oral Pulse Rate 62 Pulse Strength Normal (2+) Respiratory Rate 16 Respiratory Effort Respiratory Depth Respiratory Pattern Blood Pressure 85/52 L Blood Pressure Mean 63 Blood Pressure Source Monitor Blood Pressure Position Semi-Fowlers Blood Pressure Location Left Arm Pulse Ox 95 Oxygen Delivery Method Room Air Room Air Oxygen Flow Rate (L/min) 05/27/25 04:11 05/27/25 04:30 05/27/25 04:40 Temperature 98.0 F 98.1 F 97.0 F L Temperature Source Oral Oral Temporal Pulse Rate 104 H 99 101 H Pulse Strength Respiratory Rate 16 16 14 Respiratory Effort Respiratory Depth Respiratory Pattern Blood Pressure 87/38 L 105/53 L 100/49 L Blood Pressure Mean 54 70 66 Blood Pressure Source Monitor Monitor Monitor Blood Pressure Position Semi-Fowlers Semi-Fowlers Semi-Fowlers Blood Pressure Location Left Arm Left Arm Right Arm Pulse Ox 99 96 97 Oxygen Delivery Method Nasal Cannula Nasal Cannula Nasal Cannula Oxygen Flow Rate (L/min) 2 2 2 05/27/25 05:00 05/27/25 05:16 05/27/25 05:23 Temperature 97.3 F L Temperature Source Temporal Pulse Rate 98 Pulse Strength Normal (2+) Respiratory Rate 21 H Respiratory Effort Normal Non-Labored Respiratory Depth Normal Respiratory Pattern Normal Blood Pressure 99/54 L Blood Pressure Mean 69 Blood Pressure Source Monitor Blood Pressure Position Semi-Fowlers Blood Pressure Location Right Arm Pulse Ox 96 Oxygen Delivery Method Room Air Nasal Cannula Oxygen Flow Rate (L/min) 2 05/27/25 05:30 05/27/25 08:17 05/27/25 08:25 Temperature 97.4 F L Temperature Source Temporal Pulse Rate 76 Pulse Strength Normal (2+) Respiratory Rate 19 H Respiratory Effort Respiratory Depth Respiratory Pattern Blood Pressure 107/52 L Blood Pressure Mean 70 Blood Pressure Source Monitor Blood Pressure Position Semi-Fowlers Blood Pressure Location Right Arm Pulse Ox 95 Oxygen Delivery Method Nasal Cannula Nasal Cannula Oxygen Flow Rate (L/min) 2 2 05/27/25 08:37 05/27/25 08:37 05/27/25 08:38 Temperature 97.8 F Temperature Source Oral Pulse Rate 69 Pulse Strength Respiratory Rate 16 Respiratory Effort Respiratory Depth Respiratory Pattern Blood Pressure 106/51 L Blood Pressure Mean 69 Blood Pressure Source Monitor Blood Pressure Position Semi-Fowlers Blood Pressure Location Right Arm Pulse Ox 89 92 97 Oxygen Delivery Method Room Air Nasal Cannula Room Air Oxygen Flow Rate (L/min) 2 05/27/25 08:40 05/27/25 08:45 05/27/25 09:00 Temperature Temperature Source Pulse Rate 69 61 Pulse Strength Respiratory Rate Respiratory Effort Normal Non-Labored Respiratory Depth Normal Respiratory Pattern Normal Blood Pressure 106/51 L 115/53 L Blood Pressure Mean 73 Blood Pressure Source Monitor Blood Pressure Position Semi-Fowlers Blood Pressure Location Right Arm Pulse Ox Oxygen Delivery Method Nasal Cannula Oxygen Flow Rate (L/min) 2 05/27/25 09:54 05/27/25 10:00 Temperature 97.8 F Temperature Source Pulse Rate 69 65 Pulse Strength Respiratory Rate 16 16 Respiratory Effort Respiratory Depth Respiratory Pattern Blood Pressure 106/51 L 101/53 L Blood Pressure Mean 69 Blood Pressure Source Monitor Blood Pressure Position Semi-Fowlers Blood Pressure Location Right Arm Pulse Ox 97 100 Oxygen Delivery Method Nasal Cannula Nasal Cannula Oxygen Flow Rate (L/min) 2 2 Weight Weight: 138 lb 7.91 oz Body Mass Index (BMI) 22.3 Physical Exam Narrative Exam of the right hip shows tenderness and pain and difficult range of motion. Distal neurovascular exam is intact. Range of motion of left lower and bilateral upper extremities full and painless. Lab / Micro Data 05/27/25 05:04 05/27/25 05:04 Labs: Laboratory Results - last 24 hr 05/26/25 10:59: WBC 7.5, RBC 3.95 L, Hgb 12.3, Hct 36.4 L, MCV 92.2, MCH 31.1, MCHC 33.8, RDW Std Deviation 45.8 H, RDW Coeff of Izzy 13.5, Plt Count 239, MPV 11.2, Immature Gran % (Auto) 0.500, Neut % (Auto) 66.5, Lymph % (Auto) 23.7, [place] % (Auto) 7.2, Eos % (Auto) 1.6, Baso % (Auto) 0.5, Absolute Neuts (auto) 5.0, Absolute Lymphs (auto) 1.77, Nucleated RBC % 0, PT 13.1, INR 1.0, APTT 28.6 05/26/25 11:10: Sodium 139, Potassium 4.0, Chloride 104, Carbon Dioxide 21.9, Anion Gap 14, BUN 29 H, Creatinine 0.90, Estim Creat Clear Calc 49.78 L, Est GFR (MDRD) Non-Af 66, BUN/Creatinine Ratio 32.7 H, Glucose 126 H, Hemoglobin A1c 5.9 H, Calcium 10.1, Total Bilirubin 0.41, Direct Bilirubin 0.16, AST 26, ALT 22, Alkaline Phosphatase 84, Total Creatine Kinase 155, Total Protein 7.1, Albumin 3.8, Globulin 3.3, Vitamin D 25-Hydroxy 56.9 05/26/25 12:57: Blood Type AB POSITIVE, Antibody Screen NEGATIVE 05/27/25 05:04: WBC 9.8, RBC 3.56 L, Hgb 11.0 L, Hct 32.7 L, MCV 91.9, MCH 30.9, MCHC 33.6, RDW Std Deviation 46.0 H, RDW Coeff of Izzy 13.4, Plt Count 195, MPV 11.0, Sodium 136, Potassium 3.5, Chloride 105, Carbon Dioxide 21.0, Anion Gap 10, BUN 26 H, Creatinine 0.76, Estim Creat Clear Calc 56.01, Est GFR (MDRD) Non-Af 82, BUN/Creatinine Ratio 34.8 H, Glucose 108 H, Calcium 8.6 Imaging Radiology Impression Ankle X-Ray 05/26/25 11:01 IMPRESSION: Calcaneal spurs, otherwise unremarkable right ankle Reading Location: [id number] Hip/Pelvis X-Ray 05/26/25 11:01 IMPRESSION: Acute, minimally displaced subchondral femoral neck fracture of the right femur with soft tissue swelling. Orthopedic surgery consultation recommended Reading Location: [id number] Brain CT 05/26/25 11:38 IMPRESSION: CHRONIC CHANGES. NO ACUTE FINDINGS. Reading Location: [id number] Chest X-Ray 05/26/25 12:34 IMPRESSION: No acute process is identified in the chest. [facility] Assessment & Plan Assessment/Plan (1) Closed displaced fracture of right femoral neck: PLAN: Plan Reviewed x-rays done in the ER yesterday. These show subcapital femoral neck fracture displaced on the right. Discussed imaging findings in detail. Explained to her that this is surgical injury and she would require surgery for early return to ambulation and reduce recumbency complications. I recommend surgery in the form of her right hip hemiarthroplasty. All risk benefits and alternatives were discussed. The risks include but are not limited to infection, bleeding, hematoma formation, injury to nerves and vessels, foot drop, sciatic nerve injury, dislocation, limb line discrepancy, periprosthetic fracture, DVT, pulm embolism, cardiopulmonary event. Patient understands and agrees to proceed with surgery. I spoke with daughter on the phone as well. Answered all questions and concerns. Telephone consent with daughter Jesenia was taken. Charges/Coding Visit Charges Inpatient E&M: 87608 Init Hosp L3
[2025-05-27] MEDS: Lactated Ringers 1,000 ML 15 ML IV ×2 (11:05→18:05)
--- NOTE | 2025-05-27 11:05 | PCM.PROGNOTE ---
Subjective Subjective Patient seen and examined. She complained of pain in her right hip especially with movement. She was admitted with a complaint of mechanical fall and landed on her right hip. She had resultant hip fracture. She developed afib with RVR overnight and was transferred to the PCU. SHe spontaneously converted to normal sinus rhythm. She has no history of afib. Objective Data Objective Data Vital Signs: Vital Signs Temp Pulse Resp BP Pulse Ox O2 Del Method O2 Flow Rate 97.8 F 65 16 101/53 L 100 Nasal Cannula 2 05/27/25 09:54 05/27/25 10:00 05/27/25 10:00 05/27/25 10:00 05/27/25 10:00 05/27/25 10:00 05/27/25 10:00 Oxygen Flow Rate (L/min) 2 Oxygen Delivery Method Nasal Cannula Weight: 138 lb 7.91 oz Body Mass Index (BMI) 22.3 Intake & Output: Intake and Output for Last 24 Hours 05/25/25 05/26/25 05/27/25 23:59 23:59 23:59 Intake Total 1079.17 / 1079.17 Output Total 2750 / 2750 Balance -1670.83 / -1670.83 Lab / Micro Data 05/27/25 05:04 05/27/25 05:04 Labs: Laboratory Results - last 24 hr 05/26/25 10:59: WBC 7.5, RBC 3.95 L, Hgb 12.3, Hct 36.4 L, MCV 92.2, MCH 31.1, MCHC 33.8, RDW Std Deviation 45.8 H, RDW Coeff of Izzy 13.5, Plt Count 239, MPV 11.2, Immature Gran % (Auto) 0.500, Neut % (Auto) 66.5, Lymph % (Auto) 23.7, [place] % (Auto) 7.2, Eos % (Auto) 1.6, Baso % (Auto) 0.5, Absolute Neuts (auto) 5.0, Absolute Lymphs (auto) 1.77, Nucleated RBC % 0, PT 13.1, INR 1.0, APTT 28.6 05/26/25 11:10: Sodium 139, Potassium 4.0, Chloride 104, Carbon Dioxide 21.9, Anion Gap 14, BUN 29 H, Creatinine 0.90, Estim Creat Clear Calc 49.78 L, Est GFR (MDRD) Non-Af 66, BUN/Creatinine Ratio 32.7 H, Glucose 126 H, Hemoglobin A1c 5.9 H, Calcium 10.1, Total Bilirubin 0.41, Direct Bilirubin 0.16, AST 26, ALT 22, Alkaline Phosphatase 84, Total Creatine Kinase 155, Total Protein 7.1, Albumin 3.8, Globulin 3.3, Vitamin D 25-Hydroxy 56.9 05/26/25 12:57: Blood Type AB POSITIVE, Antibody Screen NEGATIVE 05/27/25 05:04: WBC 9.8, RBC 3.56 L, Hgb 11.0 L, Hct 32.7 L, MCV 91.9, MCH 30.9, MCHC 33.6, RDW Std Deviation 46.0 H, RDW Coeff of Izzy 13.4, Plt Count 195, MPV 11.0, Sodium 136, Potassium 3.5, Chloride 105, Carbon Dioxide 21.0, Anion Gap 10, BUN 26 H, Creatinine 0.76, Estim Creat Clear Calc 56.01, Est GFR (MDRD) Non-Af 82, BUN/Creatinine Ratio 34.8 H, Glucose 108 H, Calcium 8.6 Radiography Diagnostic Testing: Radiology Impression Ankle X-Ray 05/26/25 11:01 IMPRESSION: Calcaneal spurs, otherwise unremarkable right ankle Reading Location: [facility] Hip/Pelvis X-Ray 05/26/25 11:01 IMPRESSION: Acute, minimally displaced subchondral femoral neck fracture of the right femur with soft tissue swelling. Orthopedic surgery consultation recommended Reading Location: [facility] Brain CT 05/26/25 11:38 IMPRESSION: CHRONIC CHANGES. NO ACUTE FINDINGS. Reading Location: [id number] Chest X-Ray 05/26/25 12:34 IMPRESSION: No acute process is identified in the chest. Reading Location: [facility] Physical Exam Const alert and oriented x3 Constitutional Narrative: in moderate distress due to pain. General Appearance: cooperative HEENT normocephalic, head/scalp atraumatic, moist oral mucous membranes and oropharynx normal Eyes PERRL and EOMs intact bilaterally Neck no lymphadenopathy and supple Lymph Lymphatic: no lymphedema noted Resp normal respiratory effort, normal air movement and clear to auscultation bilaterally Cardio regular rate, regular rhythm, S1 normal heart sound, S2 normal heart sound and no murmurs GI normal to inspection, nondistended, normoactive bowel sounds, soft to palpation, non-tender and non-distended Extremity Extremity Narrative: RLE shortened and externally rotated Skin General Skin Exam: no breakdown Neuro no sensory deficits noted Motor Exam: general weakness Psych thought process normal and cooperative Mood & Affect: flat affect Assessment & Plan Assessment/Plan (1) Closed displaced fracture of right femoral neck: (2) Fall: (3) Afib: PLAN: Plan #RIght femoral neck fracture due to mechanical fall imaging done showed an acute minimally displaced riht femoral neck fracture PT/OT On board. NPO for surgery today. on PO tylenol, oxycodone and IV dilaudid prn orthopedic surgery on board #Atrial fibrillation new onset. developed afib with RVR overnight. now in normal sinus rhythm. 2D echo ordered. DIscussed with orthopedics and anesthesiologist. Pending 2D echo, patient medically cleared to go for surgery. 2D echo showed EF of 70% with no regional wall motion abnormalities and negative bubble studies electrolytes within normal limits #Hypertension; cardizem held due to BP running low. ON metoprolol. Lisinoprila nd HCTZ also on hold. #HYperlipidemia: on statin #DVT prohpylaxis: SCDs for now. TO be put on anticoagulation after surgery. Charges/Coding Visit Charges Inpatient E&M: 55755 Subs Hosp L2
--- NOTE | 2025-05-27 11:30 | FEM_PTH ---
PATIENT: RUBIN WADSWORTH LOC: [facility] U#:[id number] AGE/SX: 74/F ROOM: [facility] RE05/26/[address]: Dr. Conner Burnett DO : 1950 BED: 1 DIS: 06/01/2025 SPEC #: [id number] RECD: 05/27/25 14:33 STATUS: CHINO REAlessia #: [id number] STEVE: 05/27/25 11:[address]: Kenrick Swift DEPT: SURGICAL PATHOLOGY RECD BY: Edward Alberto ENTERED: 05/27/25 15:07 SP TYPE: FEM HEAD OTHR DR: DO Dr. Shailesh Chery MD Dr. Nana Yaa Koram, MD Tissues: A - Femoral region, NOS Procedures: Decalcification bone/plaque Surgery Specimen Level V HEADER OPERATION: Hemiarthroplasty, right hip, cemented PRE-OP DIAGNOSIS: Closed displaced fracture of right femoral neck TISSUE SUBMITTED: A- Right femoral head MICROSCOPIC DIAGNOSIS A. 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 - Focal trilineage hematopoiesis. - Hemorrhage of femoral neck suggestive of trauma/fracture. MICROSCOPIC DESCRIPTION Slides are reviewed. GROSS DESCRIPTION A. Received in formalin labeled with the patient's name and date of . Designated as right femoral head is a 4.5 x 4.3 x 3.7 cm slightly irregular femoral head with a fragmented and detached femoral neck, 2.0 cm in length by 3.8 cm in diameter. The articular cartilage is tanner and focally granular with a 0.8 x 0.8 cm area of eburnation. Sectioning reveals tanner-yellow to congested, trabeculated medullary bone. Dianeticist sections are submitted in 2 cassettes, following decalcification as follows: A1: Femoral headA2: Femoral neck CA 05/27/2025 CPT:68307,38383
[2025-05-27] MEDS: Cefazolin 2 GM in 0.9% Normal Saline (100mL Bag) 100 ML IV ×2 (12:10→21:25)
[2025-05-27] MEDS: JPS (Morphine 10mg/ml) OPERA.SITE (13:32)
--- NOTE | 2025-05-27 14:11 | OP.PCM_ITS ---
Procedures Musculoskeletal 20xxx-29xxx: Other Procedure See Report Operative Report (Standard) Operative Information Date of Procedure: 05/27/25 Pre-Operative Diagnosis: Right femoral neck fracture, displaced, subcapital Post-Operative Diagnosis: Same Surgery/Procedure Performed: Right cemented hip hemiarthroplasty manager retail: Yes First Officer And Flight Instructor: Javed Aguilera Tasks completed by first line supervisor: Closing, Hemostasis: Electrocautery and Retracting Type of Anesthesia: General RN Documented Start/Stop Times: Operation Date: 05/27/25 11:30 Case Time Into Pre-Op 05/27/25 10:50 Out of Pre-Op 05/27/25 11:45 Anesthesia Start 05/27/25 11:48 Into Room 05/27/25 11:48 Procedure Start 05/27/25 12:20 Procedure End 05/27/25 14:08 Procedure Start Time: 12:20 Procedure Stop Time: 14:08 Select all DRAINS/GRAFTS/IMPLANTS that apply: Prosthetic device Prosthetic device details: Quoc Accolade C cemented hip hemiarthroplasty Estimated Blood Loss: 100 cc Specimen collected: No Description of surgery: PRINCIPAL PRE-OP DIAGNOSIS: Right displaced FEMORAL NECK FRACTURE PRINCIPAL POST-OP DIAG: Same PRINCIPAL PROCEDURE: Right cemented HIP HEMIARTHROPLASTY CPT 62773 Surgeon: Kenrick Swift MD ANESTHESIA: General Anesthesia Record E.B.L. 100 cc SPECIMENS: None COMPLICATIONS: None DISPOSITION: PACU then potentially floor Implants: Quoc Accolade C cemented femoral stem, bipolar head OPERATIVE REPORT: INDICATION FOR SURGERY: Patient sustained a ground-level fall on the right hip with a subsequent displaced right femoral neck fracture. After discussion with the patient as well as family risk, patient elected for operative intervention with a hemiarthroplasty. Risks were discussed with the patient family including but not limited to blood loss, infection, nerve damage, instability, need for revision surgery, intraoperative fracture, cardiac arrest, . Patient signed consent for surgery. Patient was evaluated preoperatively by anesthesia who deemed the patient medically appropriate for the operating room. PROCEDURE: The patient was brought to the operating room and initial timeout was performed prior to induction of anesthesia. After confirming the patient's side, patient name with 2 unique identifiers as well as surgical plan, the patient was sedated per the anesthesiologist and intubated. Preoperative IV antibiotic was given. Patient was then placed in left lateral decubitus position with a beanbag and all bony prominences well-padded. The right lower extremity was sterilely prepped and draped in standard fashion. A second confirmatory timeout was completed which the patient's name and identification with 2 unique identifiers as well as the appropriate side and procedure was confirmed by everyone in the operating room. A standard posterior approach to the hip was performed with sharp dissection through the IT band and fascia. The piriformis tendon and some of the short external rotators were released off of the right hip and tagged. Capsulotomy was performed and tagging stitch was also placed in the capsule. The femoral neck was then cut 1 cm proximal to the lesser trochanter. The femoral head was then removed. The head measured a 45-46 and a trial of 45 and 46 mm were used. 46 mm head appeared to have a more stable fit. Next the femoral canal was prepped, the canal was broached up to a size 4 stem which had stable fixation. The canal was then prepped and a size 4 stem was cemented into the femur. After the cement was hard, a 26 shell standard offset, plus 4 neck length was trialed which had appropriate leg length, range of motion, and stability. Trial was then removed the acetabulum was irrigated to ensure there was no cement in the acetabulum. A 26 shell with a 46 head standard offset, +4 mm neck length was then placed and hip was reduced. Stability was then confirmed as well as leg length and range of motion which were all adequate and appropriate. The wound was then again irrigated with Pulsavac saline. Betadine solution was then placed in the wound for 5 minutes & washed off. Irrisept solution was then placed in the wound for 1 minutes & washed off. The short external rotators were repaired as well as the capsule through 2 drill holes in the greater trochanter. Pain cocktail was then injected into the local soft tissues. The wound was then closed in layered fashion with interrupted0 Vicryl, #2 strata fix for deep fascia, 2-0 Vicryl for subcutaneous. And the skin was closed with georgina. Wound was covered with mepilex dressing. The patient was awoken from anesthesia which they tolerated well. Patient was then taken to the PACU in stable fashion. Patient will be weightbearing as tolerated with posterior hip precautions of the right lower extremity. They will complete a course of postoperative DVT prophylaxis. We will see them back in clinic in 2 weeks for x-rays, wound check. Surgical Findings: See operative note Complications Complications: No
--- NOTE | 2025-05-27 14:27 | PCM.POST.ANE ---
Anesthesia: Postop Eval I Current Vital Signs Temperature: 96.5 F Pulse Rate: 69 Blood Pressure: 112/57 Respiratory Rate: 20 Pulse Ox: 95 Oxygen Delivery Method: Nasal Cannula Oxygen Flow Rate (L/min): 4 Assessment Airway patent: Yes Spontaneous unlabored respirations: Yes Mental status: Awake nausea: No Vomiting: No Anesthesia Complication: No Fluid Hydration Crystalloid volume administer (ml): 1,400 Total IV fluid infused: 1,400 Progress Note Anesthesia document: Postop Eval 1 completed: Yes
--- NOTE | 2025-05-27 15:30 | POSTOPAN2_ITS ---
Anesthesia Postop Eval I Sum Postop Eval Completion status Anesthesia document: Postop Eval 1 completed: Yes Anesthesia Postop Eval I Summary Anesthesia Postop Eval I Summary: Anesthesia Postop Eval I: Assessment Summary Airway patent Yes 05/27/25 14:28 POURED CONCRETE WALL [email or web address] Spontaneous unlabored Yes 05/27/25 14:28 POURED CONCRETE WALL [email or web address] respirations Mental status Awake 05/27/25 14:28 POURED CONCRETE WALL [email or web address] nausea No 05/27/25 14:28 POURED CONCRETE WALL [email or web address] Vomiting No 05/27/25 14:28 POURED CONCRETE WALL [email or web address] Anesthesia Postop Eval I: Fluid Summary Crystalloid volume administer 1,400 05/27/25 14:28 POURED CONCRETE WALL [email or web address] (ml) Colloids volume administered ( ml) Blood Product volume administered (ml) Total IV fluid infused 1,400 05/27/25 14:28 POURED CONCRETE WALL [email or web address] Anesthesia Postop Eval I: Summary Notes Anesthesia Complication No 05/27/25 14:28 POURED CONCRETE WALL [email or web address] Anesthesia Complication Comment: Post-operative progress note Anesthesia: Postop Eval II Evaluation Mental status: Asleep Pain Level: 0 nausea: No Vomiting: No Progress Note Post-operative progress note: Shortly following arrival to PACU, patient became aggressive and began fighting nursing staff. I suspect she has some underlying dementia. She received IV Ativan, 2mg to calm her and prevent further injury to herself or staff. No resting comfortably. Complications Anesthesia Complication: No
--- NOTE | 2025-05-27 15:30 | PCM.POSTANE2 ---
Anesthesia Postop Eval I Sum Postop Eval Completion status Anesthesia document: Postop Eval 1 completed: Yes Anesthesia Postop Eval I Summary Anesthesia Postop Eval I Summary: Anesthesia Postop Eval I: Assessment Summary Airway patent Yes 05/27/25 14:28 PLANTING [email or web address] Spontaneous unlabored Yes 05/27/25 14:28 PLANTING MATERIAL [email or web address] respirations Mental status Awake 05/27/25 14:28 PLANTING MATERIAL [email or web address] nausea No 05/27/25 14:28 PLANTING [email or web address] Vomiting No 05/27/25 14:28 PLANTING [email or web address] Anesthesia Postop Eval I: Fluid Summary Crystalloid volume administer 1,400 05/27/25 14:28 PLANTING [email or web address] (ml) Colloids volume administered ( ml) Blood Product volume administered (ml) Total IV fluid infused 1,400 05/27/25 14:28 PLANTING [email or web address] Anesthesia Postop Eval I: Summary Notes Anesthesia Complication No 05/27/25 14:28 PLANTING [email or web address] Anesthesia Complication Comment: Post-operative progress note Anesthesia: Postop Eval II Evaluation Mental status: Asleep Pain Level: 0 nausea: No Vomiting: No Progress Note Post-operative progress note: Shortly following arrival to PACU, patient became aggressive and began fighting nursing staff. I suspect she has some underlying dementia. She received IV Ativan, 2mg to calm her and prevent further injury to herself or staff. No resting comfortably. Complications Anesthesia Complication: No
--- NOTE | 2025-05-27 18:49 | SUR.PHASEI ---
UPON AWAKING IN PACU, PATIENT COMBATIVE, BELLIGERENT, YELLING AND SCREAMING LEAVE ME ALONE, TRYING TO CLIMB OUT OF BED, REMOVING MEDICAL DEVICES. DR DOE, ANESTHESIA, NOTIFIED, ADMINISTERED 2 MG IV ATIVAN AT 1442. PATIENT SOMNOLENT SINCE. ROMAZICOM 0.2 MG IV GIVEN AT 1647 WITH MINIMAL BENEFIT, AGAIN AT 1829. PATIENT NOW AROUSES EASILY WITH VERBAL/PHYSICAL STIMULATION, STATES LEAVE ME ALONE, STRUCK OUT AND HIT NURSE. RESISTANT TO CARE, VERBALLY THREATENING NURSE. PATIENT WAS ON OXYGEN PRE-OP FROM PCU. CURRENTLY ON 4 L/MIN, SPO2 IS 94-96%. SPO2 INCREASING AFTER PATIENT COUGHED. DR DOE ORDERED CONTINUOUS PULSE OX OVERNIGHT TO TITRATE NEEDED. VITALS STABLE.
--- NOTE | 2025-05-27 20:09 | PCM.HOSP.N ---
Hospitalist Note Code Melinda was called overhead at ~7:50 PM after patient was noted to be increasingly agitated and confused, even after lorazepam and haloperidol. Therefore, she was transferred to the ICU for treatment with Precedex. TELEGRAPHIC TYPEWRITER MECHANIC was updated with plan.
--- NOTE | 2025-05-27 20:14 | NURSING ---
Patient arrived on the floor from PACU agitated and restless. Patient was attempting to pull off the wedge between her legs, solano, and her iv. Multiple staff members came into the room to assist. Contacted MD for prn medication to help with the patient's agitation. MD ordered haladol IM, which was given. Pt continued to escalate and began hitting staff members and yelling. A [place] logan was called and at that point MD chose to transfer the patient to ICU for care.
[2025-05-28] VITALS (26 sets, daily range): BP systolic 95–124; BP diastolic 49–86; PULSE 66–167; RESP 13–20; TEMP 36.6–36.8; O2SAT 92–100; BMI 24.0
[2025-05-28] MEDS: 0.9% Normal Saline (1000mL) 1,000 ML 125 ML IV (03:31)
[2025-05-28] MEDS: Cefazolin 2 GM in 0.9% Normal Saline (100mL Bag) 100 ML IV (03:32)
[2025-05-28 05:52] LABS: Hematocrit 32.7 % (37-47); Hemoglobin 10.8 g/dL (12.0-15.0); Mean Corp Hgb Conc 33.0 g/dL (32-36); Mean Corpuscular Volume 94.2 fL (81-99); Mean Platelet Vol. 10.5 fl (6.2-12.0); Platelet Count 157 K/mm3 (150-450); RBC Distribution Width CV 13.8 % (11.6-14.6); RBC Distribution Width SD 47.8 fl (35.1-43.9); Red Blood Count 3.47 M/mm3 (4.2-5.4); White Blood Count 11.3 K/mm3 (4.4-11.0)
[2025-05-28 06:19] LABS: Anion Gap 10 (5-15); BUN 21 mg/dL (4-19); BUN/Creat Ratio 29.0 RATIO (10-20); Calcium,Total 8.5 mg/dL (7.6-11.0); Carbon Dioxide 21.6 mmol/L (21.0-32.0); Chloride 106 mmol/L (98-108); Estimated Creatinine Clearance 56.01 ml/min (50-250); Glucose 120 mg/dL (70-99); Potassium 4.1 mmol/L (3.3-5.1)
[2025-05-28] MEDS: APIXABAN 2.5 MG TABLET (WCH) PO ×2 (08:07→21:53)
[2025-05-28] MEDS: Calcium Carb/Vitamin D 1 TABLET Tablet PO ×2 (08:10→11:39)
--- NOTE | 2025-05-28 10:10 | PCM.PROGNOTE ---
Subjective Subjective Patient seen and examined. Her daughter was by her bedside and she had no complaints. She is POD 1 for right hip hemiarthroplasty. SHe was transferred up to the ICU after she became agitated overnight and was thought to possibly require precedex. However, she did not require precedex and improved with haldol. She feels much better today. She has remained hemodynamically stable. Objective Data Objective Data Vital Signs: Vital Signs Temp Pulse Resp BP Pulse Ox O2 Del Method O2 Flow Rate 98.3 F 80 13 109/50 L 98 Room Air 2 05/28/25 08:00 05/28/25 08:07 05/28/25 08:00 05/28/25 08:07 05/28/25 09:31 05/28/25 09:31 05/28/25 08:12 Oxygen Flow Rate (L/min) 2 Oxygen Delivery Method Room Air Weight: 149 lb 11.102 oz Body Mass Index (BMI) 24.0 Intake & Output: Intake and Output for Last 24 Hours 05/26/25 05/27/25 05/28/25 23:59 23:59 23:59 Intake Total 4337.17 / 4337.17 1255.83 / 1255.83 Output Total 3575 / 3575 175 / 175 Balance 762.17 / 762.17 1080.83 / 1080.83 Lab / Micro Data 05/28/25 05:39 05/28/25 05:39 Labs: Laboratory Results - last 24 hr 05/28/25 05:39: WBC 11.3 H, RBC 3.47 L, Hgb 10.8 L, Hct 32.7 L, MCV 94.2, MCH 31.1, MCHC 33.0, RDW Std Deviation 47.8 H, RDW Coeff of Izzy 13.8, Plt Count 157, MPV 10.5, Sodium 138, Potassium 4.1, Chloride 106, Carbon Dioxide 21.6, Anion Gap 10, BUN 21 H, Creatinine 0.74, Estim Creat Clear Calc 56.01, Est GFR (MDRD) Non-Af 84, BUN/Creatinine Ratio 29.0 H, Glucose 120 H, Calcium 8.5 Radiography Diagnostic Testing: Radiology Impression Echocardiogram 05/27/25 08:11 Interpretation Summary Normal LV size. Left ventricular systolic function is normal. The left ventricular ejection fraction is 70 %. Bubble contrast study negative for right to left interatrial shunt. Mild (1+) eccentric aortic valve insufficiency. Ordering Physician: Yuni Anaya Referring Physician: CRUZ FLORENTINO Performed By: Cheryl Pressley RDCS Hip X-Ray 05/27/25 10:30 IMPRESSION: Postoperative changes as above. Reading Location: [facility] Physical Exam Const alert, oriented x3, no apparent distress and average body habitus General Appearance: cooperative and comfortable HEENT normocephalic, head/scalp atraumatic, hearing grossly normal bilaterally, nasal mucous membranes and turbinates normal, moist oral mucous membranes and oropharynx normal Eyes PERRL, EOMs intact bilaterally and conjunctivae normal Neck full ROM, no lymphadenopathy and supple Lymph Lymphatic: no lymphedema noted Chest inspection of chest normal Resp normal respiratory effort, normal air movement, no use of accessory muscles and clear to auscultation bilaterally Cardio regular rate, regular rhythm, S1 normal heart sound, S2 normal heart sound, no murmurs and peripheral pulses 2+ throughout GI normal to inspection, nondistended, normoactive bowel sounds, soft to palpation, non-tender and non-distended Back/Spine normal ROM Extremity Extremity Narrative: intact dressing over right hip. Neuro no focal motor deficits and no sensory deficits noted Motor Exam: general weakness Psych mental status grossly normal, thought process normal and cooperative Appearance: appropriate Assessment & Plan Assessment/Plan (1) Closed displaced fracture of right femoral neck: (2) Fall: (3) Afib: PLAN: Plan #RIght femoral neck fracture due to mechanical fall imaging done showed an acute minimally displaced right femoral neck fracture PT/OT On board had right hip cemented hemiarthroplasty on 05/27/2025. Today is POD 1. on PO tylenol, oxycodone and IV dilaudid prn orthopedic surgery on board #Acute agitation and encephalopathy Patient was agitated last night and so was transferred up to the ICU due to concern that she may need Precedex drip. However she did not require this improved with a dose of Haldol and did well. Irritation has resolved now. #Atrial fibrillation new onset. afib with RVR has not recurred now in normal sinus rhythm. 2D echo showed EF of 70% with no regional wall motion abnormalities and negative bubble studies electrolytes within normal limits stable. On metoprolol. Cardizem was held due to her BP running low CHADVASC score is 4 (age, gender, hypertension history) will place on stroke prophylaxis with eliquis #Hypertension; cardizem held due to BP running low. ON metoprolol. Lisinoprila nd HCTZ also on hold. #HYperlipidemia: on statin #DVT prohpylaxis: will start eliquis 2.5mg bid. Disposition: transfer out of ICU to PCU. Charges/Coding Visit Charges Inpatient E&M: 66218 Subs Hosp L2
--- NOTE | 2025-05-28 15:36 | CASEMGMT ---
See PT eval and previous SW note. RN CM to the pt room at this time to discuss DC planning. Pt's daughter at bedside. Pt and pt daughter state that they are agreeable to SNF @ the time of DC and select the following SNF's as their preferences: 1.) [facility], 2.) [facility], & 3.) [facility]. Referral(s) to be made once appropriate. Care Management to follow.
--- NOTE | 2025-05-28 15:59 | PCM.PN.ORT ---
Subjective Subjective Postop day 1 status post right hip hemiarthroplasty. Saw patient in ICU this afternoon. Patient was in PCU but developed agitation and delirium overnight for which she was admitted to the ICU overnight. When I saw her she was sitting on a recliner and was feeling much better. Pain is well-controlled. She was able to walk a few steps with PT with the help of a walker. She is now well-oriented to time place and person. Objective Data Objective Data Vital Signs: Vital Signs Temp Pulse Resp BP Pulse Ox O2 Del Method O2 Flow Rate 98.3 F 78 20 H 108/60 95 Room Air 2 05/28/25 08:00 05/28/25 11:00 05/28/25 11:00 05/28/25 11:00 05/28/25 11:00 05/28/25 12:00 05/28/25 08:12 Oxygen Flow Rate (L/min) 2 Oxygen Delivery Method Room Air Weight: 149 lb 11.102 oz Body Mass Index (BMI) 24.0 Intake & Output: Intake and Output for Last 24 Hours 05/26/25 05/27/25 05/28/25 23:59 23:59 23:59 Intake Total 4337.17 / 4337.17 2255.83 / 2255.83 Output Total 3575 / 3575 325 / 325 Balance 762.17 / 762.17 1930.83 / 1930.83 Lab / Micro Data 05/28/25 05:39 05/28/25 05:39 Labs: Laboratory Results - last 24 hr 05/28/25 05:39: WBC 11.3 H, RBC 3.47 L, Hgb 10.8 L, Hct 32.7 L, MCV 94.2, MCH 31.1, MCHC 33.0, RDW Std Deviation 47.8 H, RDW Coeff of Izzy 13.8, Plt Count 157, MPV 10.5, Sodium 138, Potassium 4.1, Chloride 106, Carbon Dioxide 21.6, Anion Gap 10, BUN 21 H, Creatinine 0.74, Estim Creat Clear Calc 56.01, Est GFR (MDRD) Non-Af 84, BUN/Creatinine Ratio 29.0 H, Glucose 120 H, Calcium 8.5 Physical Exam Narrative Dressing?CDI. Distal neurovascular exam is intact. Assessment & Plan Assessment/Plan (1) Status post hemiarthroplasty of right hip: PLAN: Plan Postop day 1 status post right hip hemiarthroplasty. Patient doing well now after recovery from overnight delirium. Discussed that if the pain is not under well control, she should avoid any opiate pain medication or any sedative medication which might increase her risk for delirium. Continue PT OT. Weightbearing as tolerated. Discharge likely to rehab versus home depending on results with PT. All questions answered. Patient was in agreement.
--- NOTE | 2025-05-28 19:27 | EKG12_ITS ---
Test Reason : NSR Blood Pressure : */* mmHG Vent. Rate : 85 BPM Atrial Rate : 85 BPM P-R Int : 152 ms QRS Dur : 92 ms QT Int : 356 ms P-R-T Axes : 35 29 23 degrees QTcB Int : 423 ms Normal sinus rhythm Normal ECG When compared with ECG of 28-May-2025 19:27, MANUAL COMPARISON REQUIRED DATA IS UNCONFIRMED Confirmed by ENZO REID, KELSEA ([id number]), managing editor VICKIE NORTON ([id number]) on 05/29/2025 10:57:06 AM Referred By: Confirmed By: KELSEA GIRALDO MD
--- NOTE | 2025-05-28 21:15 | EKG12_ITS ---
Test Reason : TACHY Blood Pressure : */* mmHG Vent. Rate : 169 BPM Atrial Rate : * BPM P-R Int : * ms QRS Dur : 90 ms QT Int : 286 ms P-R-T Axes : * 36 215 degrees QTcB Int : 479 ms Critical Test Result: High HR Atrial fibrillation with rapid ventricular response Marked ST abnormality, possible anterolateral subendocardial injury Abnormal ECG When compared with ECG of 27-May-2025 05:34, Significant changes have occurred Confirmed by ENZO REID, KELSEA ([id number]), communications editor VICKIE NORTON ([id number]) on 05/29/2025 10:57:42 AM Referred By: DAMION Confirmed By: KELSEA GIRALDO MD
[2025-05-28] MEDS: 0.9% Saline Lock 10 ML Syringe IV ×2 (21:58→22:20)
[2025-05-28] MEDS: Diltiazem 125 MG in Dextrose 5%-Water (100mL Bag) 100 ML IV (22:20)
[2025-05-29] VITALS (18 sets, daily range): BP systolic 87–154; BP diastolic 56–89; PULSE 61–77; RESP 16–21; TEMP 36.2–36.9; O2SAT 92–99; BMI 24.4
[2025-05-29 06:00] LABS: Hematocrit 30.0 % (37-47); Hemoglobin 10.0 g/dL (12.0-15.0); Mean Corp Hgb Conc 33.3 g/dL (32-36); Mean Corpuscular Volume 93.2 fL (81-99); Mean Platelet Vol. 11.5 fl (6.2-12.0); Platelet Count 161 K/mm3 (150-450); RBC Distribution Width CV 13.7 % (11.6-14.6); RBC Distribution Width SD 47.3 fl (35.1-43.9); Red Blood Count 3.22 M/mm3 (4.2-5.4); White Blood Count 8.7 K/mm3 (4.4-11.0)
[2025-05-29 08:32] LABS: Anion Gap 9 (5-15); BUN 21 mg/dL (4-19); BUN/Creat Ratio 27.8 RATIO (10-20); Calcium,Total 8.4 mg/dL (7.6-11.0); Carbon Dioxide 23.1 mmol/L (21.0-32.0); Chloride 106 mmol/L (98-108); Estimated Creatinine Clearance 56.01 ml/min (50-250); Glucose 105 mg/dL (70-99); Potassium 3.7 mmol/L (3.3-5.1)
[2025-05-29] MEDS: APIXABAN 2.5 MG TABLET (WCH) PO ×2 (08:34→21:05)
[2025-05-29] MEDS: Calcium Carb/Vitamin D 1 TABLET Tablet PO ×3 (08:34→17:27)
--- NOTE | 2025-05-29 09:05 | CASEMGMT ---
Social Work Referral to TCU and they are unable to accept. Referral to [facility]. Clinicals faxed and call placed to Estelita with Referral. Estelita to review case and will notify if [facility] can accept. Pt will need precert prior to discharge. MIAN Vickers
--- NOTE | 2025-05-29 10:19 | PN_ITS ---
Subjective Subjective Patient seen and examined. She had no active complaints today. She developed A-fib with RVR overnight and was placed on Cardizem drip. She is converted to normal sinus rhythm now. She denies any chest pain or tachycardia or any other complaints. Review of systems otherwise negative. Objective Data Objective Data Vital Signs: Vital Signs Temp Pulse Resp BP Pulse Ox O2 Del Method O2 Flow Rate 98.0 F 74 18 154/74 H 94 Room Air 93 05/29/25 08:00 05/29/25 08:34 05/29/25 08:00 05/29/25 08:34 05/29/25 08:00 05/29/25 08:00 05/29/25 07:51 Oxygen Flow Rate (L/min) 93 Oxygen Delivery Method Room Air Weight: 151 lb 7.321 oz Body Mass Index (BMI) 24.4 Intake & Output: Intake and Output for Last 24 Hours 05/27/25 05/28/25 05/29/25 23:59 23:59 23:59 Intake Total 4337.17 / 4337.17 2742.91 / 2744.16 241.25 / 241.25 Output Total 3575 / 3575 825 / 825 350 / 350 Balance 762.17 / 762.17 1917.91 / 1919.16 -108.75 / -108.75 Lab / Micro Data 05/29/25 05:15 05/29/25 05:15 Labs: Laboratory Results - last 24 hr 05/29/25 05:15: WBC 8.7, RBC 3.22 L, Hgb 10.0 L, Hct 30.0 L, MCV 93.2, MCH 31.1, MCHC 33.3, RDW Std Deviation 47.3 H, RDW Coeff of Izzy 13.7, Plt Count 161, MPV 11.5, Sodium 138, Potassium 3.7, Chloride 106, Carbon Dioxide 23.1, Anion Gap 9, BUN 21 H, Creatinine 0.77, Estim Creat Clear Calc 56.01, Est GFR (MDRD) Non-Af 80, BUN/Creatinine Ratio 27.8 H, Glucose 105 H, Calcium 8.4 Physical Exam Const alert, oriented x3, no apparent distress and average body habitus Constitutional Narrative: General Appearance: cooperative and comfortable HEENT normocephalic, head/scalp atraumatic, hearing grossly normal bilaterally, nasal mucous membranes and turbinates normal, moist oral mucous membranes and oropharynx normal Eyes PERRL, EOMs intact bilaterally and conjunctivae normal Neck full ROM, no lymphadenopathy and supple Lymph Lymphatic: no lymphedema noted Chest inspection of chest normal Resp normal respiratory effort, normal air movement, no use of accessory muscles and clear to auscultation bilaterally Cardio regular rate, regular rhythm, S1 normal heart sound, S2 normal heart sound, no murmurs and peripheral pulses 2+ throughout GI normal to inspection, nondistended, normoactive bowel sounds, soft to palpation, non-tender and non-distended Extremity Extremity Narrative: intact dressing over right hip. Skin no rashes or lesions noted General Skin Exam: no breakdown Neuro no focal motor deficits and no sensory deficits noted Motor Exam: general weakness Psych mental status grossly normal, thought process normal and cooperative Appearance: appropriate Assessment & Plan Assessment/Plan (1) Closed displaced fracture of right femoral neck: (2) Fall: (3) Afib: PLAN: Plan #RIght femoral neck fracture due to mechanical fall * imaging done showed an acute minimally displaced right femoral neck fracture * PT/OT On board * had right hip cemented hemiarthroplasty on 05/27/2025. Today is POD 2. * on PO tylenol, oxycodone and IV dilaudid prn * orthopedic surgery on board * #Acute agitation and encephalopathy * resolved. * #Atrial fibrillation * new onset. developed afib with RVR overnight. Was placed on cardizem drip * now in normal sinus rhythm. * 2D echo showed EF of 70% with no regional wall motion abnormalities and negative bubble studies * electrolytes within normal limits * on metoprolol. Will resume her oral cardizem and wean off cardizem drip. * CHADVASC score is 4 (age, gender, hypertension history) * will place on stroke prophylaxis with eliquis * #Hypertension; on cardizem and PO metoprolol. Lisinopril and HCTZ on hold. #HYperlipidemia: on statin #DVT prohpylaxis: on eliquis 2.5mg bid. Disposition: awaiting placement. Charges/Coding Visit Charges Inpatient E&M: 17822 Subs Hosp L2
--- NOTE | 2025-05-29 13:10 | CASEMGMT ---
Social Work [facility] is able to accept pt and precert has been started. Pt and pt's dgt Sarah notified. Pt will need precert prior to discharge. Green Sheet placed on pt chart to facilitate a weekend discharge. Plan: [facility], skilled level of care, pending precert MIAN Aponte
--- NOTE | 2025-05-29 15:58 | PN.ORTHO_ITS ---
Subjective Subjective Postop day 2 status post right hip hemiarthroplasty. Saw patient in PCU this afternoon. Patient developed agitation and delirium on the night right after surgery for which she was admitted to the ICU overnight but was transferred back to PCU again when she recovered. Pain is well- controlled. She was able to walk with PT with the help of a walker. Objective Data Objective Data Vital Signs: Vital Signs Temp Pulse Resp BP Pulse Ox O2 Del Method O2 Flow Rate 98.5 F 61 18 122/60 H 95 Room Air 93 05/29/25 15:18 05/29/25 15:18 05/29/25 15:18 05/29/25 15:18 05/29/25 15:18 05/29/25 15:18 05/29/25 07:51 Oxygen Flow Rate (L/min) 93 Oxygen Delivery Method Room Air Weight: 151 lb 7.321 oz Body Mass Index (BMI) 24.4 Intake & Output: Intake and Output for Last 24 Hours 05/27/25 05/28/25 05/29/25 23:59 23:59 23:59 Intake Total 4337.17 / 4337.17 2742.91 / 2744.16 651.33 / 651.33 Output Total 3575 / 3575 825 / 825 350 / 350 Balance 762.17 / 762.17 1917.91 / 1919.16 301.33 / 301.33 Lab / Micro Data 05/29/25 05:15 05/29/25 05:15 Labs: Laboratory Results - last 24 hr 05/29/25 05:15: WBC 8.7, RBC 3.22 L, Hgb 10.0 L, Hct 30.0 L, MCV 93.2, MCH 31.1, MCHC 33.3, RDW Std Deviation 47.3 H, RDW Coeff of Izzy 13.7, Plt Count 161, MPV 11.5, Sodium 138, Potassium 3.7, Chloride 106, Carbon Dioxide 23.1, Anion Gap 9, BUN 21 H, Creatinine 0.77, Estim Creat Clear Calc 56.01, Est GFR (MDRD) Non-Af 80, BUN/Creatinine Ratio 27.8 H, Glucose 105 H, Calcium 8.4 Physical Exam Narrative Dressing?CDI. Distal neurovascular exam is intact. Assessment & Plan Assessment/Plan (1) Status post hemiarthroplasty of right hip: PLAN: Plan Postop day 2 status post right hip hemiarthroplasty. Patient doing well now after recovery from initial postop delirium. Discussed that if the pain is not under well control, she should avoid any opiate pain medication or any sedative medication which might increase her risk for delirium. Continue PT OT. Weightbearing as tolerated. Discharge likely to rehab versus home depending on results with PT. All questions answered. Patient was in agreement. Orthopedics will sign off. Please reach out for any questions or concerns. Follow-up in clinic in 2 weeks.
[2025-05-30] VITALS (7 sets, daily range): BP systolic 119–147; BP diastolic 53–85; PULSE 59–71; RESP 16–18; TEMP 35.8–37.1; O2SAT 94–97; BMI 25.2
[2025-05-30 07:33] LABS: Hematocrit 31.5 % (37-47); Hemoglobin 10.5 g/dL (12.0-15.0); Mean Corp Hgb Conc 33.3 g/dL (32-36); Mean Corpuscular Volume 91.8 fL (81-99); Mean Platelet Vol. 11.7 fl (6.2-12.0); Platelet Count 190 K/mm3 (150-450); RBC Distribution Width CV 13.6 % (11.6-14.6); RBC Distribution Width SD 45.6 fl (35.1-43.9); Red Blood Count 3.43 M/mm3 (4.2-5.4); White Blood Count 8.7 K/mm3 (4.4-11.0)
[2025-05-30 08:04] LABS: Anion Gap 8 (5-15); BUN 14 mg/dL (4-19); BUN/Creat Ratio 22.3 RATIO (10-20); Calcium,Total 8.6 mg/dL (7.6-11.0); Carbon Dioxide 25.0 mmol/L (21.0-32.0); Chloride 108 mmol/L (98-108); Estimated Creatinine Clearance 56.01 ml/min (50-250); Glucose 110 mg/dL (70-99); Potassium 3.8 mmol/L (3.3-5.1)
[2025-05-30] MEDS: APIXABAN 2.5 MG TABLET (WCH) PO ×2 (08:28→21:05)
[2025-05-30] MEDS: Calcium Carb/Vitamin D 1 TABLET Tablet PO ×3 (08:28→16:51)
--- NOTE | 2025-05-30 11:14 | PN_ITS ---
Subjective Subjective Patient seen and examined. She had no complaints and had an uneventful night. Review of systems is otherwise negative. Objective Data Objective Data Vital Signs: Vital Signs Temp Pulse Resp BP Pulse Ox O2 Del Method O2 Flow Rate 98.8 F 64 18 147/85 H 96 Room Air 93 05/30/25 08:25 05/30/25 08:28 05/30/25 08:25 05/30/25 08:25 05/30/25 08:25 05/30/25 08:25 05/29/25 07:51 Oxygen Flow Rate (L/min) 93 Oxygen Delivery Method Room Air Weight: 156 lb 1.396 oz Body Mass Index (BMI) 25.2 Intake & Output: Intake and Output for Last 24 Hours 05/28/25 05/29/25 05/30/25 23:59 23:59 23:59 Intake Total 2742.91 / 2744.16 1151.33 / 1151.33 Output Total 825 / 825 2150 / 2550 1800 / 1800 Balance 1917.91 / 1919.16 -998.67 / -1398.67 -1800 / -1800 Lab / Micro Data 05/30/25 06:30 05/30/25 06:30 Labs: Laboratory Results - last 24 hr 05/30/25 06:30: WBC 8.7, RBC 3.43 L, Hgb 10.5 L, Hct 31.5 L, MCV 91.8, MCH 30.6, MCHC 33.3, RDW Std Deviation 45.6 H, RDW Coeff of Izzy 13.6, Plt Count 190, MPV 11.7, Sodium 141, Potassium 3.8, Chloride 108, Carbon Dioxide 25.0, Anion Gap 8, BUN 14, Creatinine 0.61 L, Estim Creat Clear Calc 56.01, Est GFR (MDRD) Non-Af 92, BUN/Creatinine Ratio 22.3 H, Glucose 110 H, Calcium 8.6 Physical Exam Const alert, oriented x3, no apparent distress and average body habitus Constitutional Narrative: General Appearance: cooperative and comfortable HEENT normocephalic, head/scalp atraumatic, hearing grossly normal bilaterally, nasal mucous membranes and turbinates normal, moist oral mucous membranes and oropharynx normal Eyes PERRL, EOMs intact bilaterally and conjunctivae normal Neck full ROM, no lymphadenopathy and supple Lymph Lymphatic: no lymphedema noted Chest inspection of chest normal Resp normal respiratory effort, normal air movement, no use of accessory muscles and clear to auscultation bilaterally Cardio regular rate, regular rhythm, S1 normal heart sound, S2 normal heart sound, no murmurs and peripheral pulses 2+ throughout GI normal to inspection, nondistended, normoactive bowel sounds, soft to palpation, non-tender and non-distended Back/Spine normal ROM Extremity Extremity Narrative: intact dressing over right hip. Skin no rashes or lesions noted General Skin Exam: no breakdown Neuro CN's II-XII intact bilaterally, no focal motor deficits and no sensory deficits noted Motor Exam: general weakness Psych mental status grossly normal, thought process normal and cooperative Appearance: appropriate Assessment & Plan Assessment/Plan (1) Closed displaced fracture of right femoral neck: (2) Fall: (3) Afib: PLAN: Plan #RIght femoral neck fracture due to mechanical fall * imaging done showed an acute minimally displaced right femoral neck fracture * PT/OT On board * had right hip cemented hemiarthroplasty on 05/27/2025. Today is POD 3. * on PO tylenol, oxycodone and IV dilaudid prn * orthopedic surgery on board * #Acute agitation and encephalopathy * resolved. * #Atrial fibrillation * new onset. RVR has resolved. * now in normal sinus rhythm. * 2D echo showed EF of 70% with no regional wall motion abnormalities and negative bubble studies * electrolytes within normal limits * on metoprolol and oral cardizem. * CHADVASC score is 4 (age, gender, hypertension history) * on eliquis * #Hypertension; on cardizem and PO metoprolol. Lisinopril and HCTZ on hold as BP has been running on the lower side of normal. #HYperlipidemia: on statin #DVT prophylaxis: on eliquis 2.5mg bid. Disposition: awaiting placement. Charges/Coding Visit Charges Inpatient E&M: 24827 Subs Hosp L2
[2025-05-31 03:00] VITALS: BP 139/71; PULSE 64; RESP 18; TEMP 36.3; O2SAT 95
[2025-05-31 03:04] VITALS: BMI 25.0
[2025-05-31 07:05] LABS: Anion Gap 8 (5-15); BUN 20 mg/dL (4-19); BUN/Creat Ratio 31.2 RATIO (10-20); Calcium,Total 8.6 mg/dL (7.6-11.0); Carbon Dioxide 23.8 mmol/L (21.0-32.0); Chloride 107 mmol/L (98-108); Estimated Creatinine Clearance 56.01 ml/min (50-250); Glucose 114 mg/dL (70-99); Potassium 3.7 mmol/L (3.3-5.1)
[2025-05-31 09:00] VITALS: BP 131/70; PULSE 66; RESP 16; TEMP 36.6; O2SAT 94
[2025-05-31] MEDS: Calcium Carb/Vitamin D 1 TABLET Tablet PO ×3 (09:25→17:49)
[2025-05-31 09:26] VITALS: BP 131/70; PULSE 67
[2025-05-31] MEDS: APIXABAN 2.5 MG TABLET (WCH) PO ×2 (09:26→20:10)
--- NOTE | 2025-05-31 10:25 | PN_ITS ---
Subjective Subjective Patient seen and examined. She had no active complaints. Review of systems is otherwise negative. She has remained hemodynamically stable. Objective Data Objective Data Vital Signs: Vital Signs Temp Pulse Resp BP Pulse Ox O2 Del Method O2 Flow Rate 97.4 F L 67 18 131/70 H 95 Room Air 93 05/31/25 03:00 05/31/25 09:26 05/31/25 03:00 05/31/25 09:26 05/31/25 03:00 05/31/25 08:07 05/29/25 07:51 Oxygen Flow Rate (L/min) 93 Oxygen Delivery Method Room Air Weight: 154 lb 12.232 oz Body Mass Index (BMI) 25.0 Intake & Output: Intake and Output for Last 24 Hours 05/29/25 05/30/25 05/31/25 23:59 23:59 23:59 Intake Total 1151.33 / 1151.33 900 / 900 Output Total 2150 / 2550 2200 / 2200 Balance -998.67 / -1398.67 -1300 / -1300 Lab / Micro Data 05/30/25 06:30 05/31/25 06:10 Labs: Laboratory Results - last 24 hr 05/31/25 06:10: Sodium 139, Potassium 3.7, Chloride 107, Carbon Dioxide 23.8, Anion Gap 8, BUN 20 H, Creatinine 0.65 L, Estim Creat Clear Calc 56.01, Est GFR (MDRD) Non-Af 91, BUN/Creatinine Ratio 31.2 H, Glucose 114 H, Calcium 8.6 Physical Exam Const alert, oriented x3, no apparent distress and average body habitus Constitutional Narrative: General Appearance: cooperative and comfortable HEENT normocephalic, head/scalp atraumatic, hearing grossly normal bilaterally, nasal mucous membranes and turbinates normal, moist oral mucous membranes and oropharynx normal Eyes PERRL, EOMs intact bilaterally and conjunctivae normal Neck full ROM, no lymphadenopathy and supple Lymph Lymphatic: no lymphedema noted Chest inspection of chest normal Resp normal respiratory effort, normal air movement, no use of accessory muscles and clear to auscultation bilaterally Cardio regular rate, regular rhythm, S1 normal heart sound, S2 normal heart sound, no murmurs and peripheral pulses 2+ throughout GI normal to inspection, nondistended, normoactive bowel sounds, soft to palpation, non-tender and non-distended Back/Spine normal ROM Extremity Extremity Narrative: intact dressing over right hip. Skin no rashes or lesions noted General Skin Exam: no breakdown Neuro CN's II-XII intact bilaterally, no focal motor deficits and no sensory deficits noted Motor Exam: general weakness Psych mental status grossly normal, thought process normal and cooperative Appearance: appropriate Assessment & Plan Assessment/Plan (1) Closed displaced fracture of right femoral neck: (2) Fall: (3) Afib: PLAN: Plan #RIght femoral neck fracture due to mechanical fall * imaging done showed an acute minimally displaced right femoral neck fracture * PT/OT On board * had right hip cemented hemiarthroplasty on 05/27/2025. Today is POD 4. * on PO tylenol, oxycodone and IV dilaudid prn * orthopedic surgery on board * #Acute agitation and encephalopathy * resolved. * #Atrial fibrillation * new onset. RVR has resolved. * now in normal sinus rhythm. * 2D echo showed EF of 70% with no regional wall motion abnormalities and negative bubble studies * electrolytes within normal limits * on metoprolol and oral cardizem. * CHADVASC score is 4 (age, gender, hypertension history) * on eliquis * #Hypertension; on cardizem and PO metoprolol. Lisinopril and HCTZ on hold as BP has been running on the lower side of normal. #HYperlipidemia: on statin #DVT prophylaxis: on eliquis 2.5mg bid. Disposition: awaiting placement. Charges/Coding Visit Charges Inpatient E&M: 96920 Subs Hosp L2
[2025-05-31 10:41] LABS: Hematocrit 29.9 % (37-47); Hemoglobin 10.1 g/dL (12.0-15.0); Immature Granulocytes Count 0.050 X10^3/uL (0.0-0.0); Mean Corp Hgb Conc 33.8 g/dL (32-36); Mean Corpuscular Volume 92.0 fL (81-99); Mean Platelet Vol. 11.6 fl (6.2-12.0); NRBC Flagged by Analyzer 0 % (0-5); Platelet Count 189 K/mm3 (150-450); RBC Distribution Width CV 13.8 % (11.6-14.6); RBC Distribution Width SD 46.6 fl (35.1-43.9); Red Blood Count 3.25 M/mm3 (4.2-5.4); White Blood Count 8.2 K/mm3 (4.4-11.0)
[2025-05-31 16:00] VITALS: BP 120/65; PULSE 64; RESP 16; TEMP 36.3; O2SAT 97
[2025-05-31 20:08] VITALS: BP 140/66; PULSE 66; RESP 18; TEMP 36.2; O2SAT 97
[2025-05-31 20:09] VITALS: BP 140/66; PULSE 66
[2025-06-01 02:40] VITALS: BP 135/66; PULSE 63; RESP 16; TEMP 36.3; O2SAT 94
[2025-06-01 03:13] VITALS: BMI 25.1
[2025-06-01 06:17] LABS: Hematocrit 31.7 % (37-47); Hemoglobin 10.7 g/dL (12.0-15.0); Immature Granulocytes Count 0.110 X10^3/uL (0.0-0.0); Mean Corp Hgb Conc 33.8 g/dL (32-36); Mean Corpuscular Volume 91.6 fL (81-99); Mean Platelet Vol. 11.0 fl (6.2-12.0); NRBC Flagged by Analyzer 0.2 % (0-5); Platelet Count 234 K/mm3 (150-450); RBC Distribution Width CV 13.5 % (11.6-14.6); RBC Distribution Width SD 45.6 fl (35.1-43.9); Red Blood Count 3.46 M/mm3 (4.2-5.4); White Blood Count 8.4 K/mm3 (4.4-11.0)
[2025-06-01 06:50] LABS: Anion Gap 12 (5-15); BUN 17 mg/dL (4-19); BUN/Creat Ratio 29.1 RATIO (10-20); Calcium,Total 9.0 mg/dL (7.6-11.0); Carbon Dioxide 21.7 mmol/L (21.0-32.0); Chloride 108 mmol/L (98-108); Estimated Creatinine Clearance 56.01 ml/min (50-250); Glucose 124 mg/dL (70-99); Potassium 3.8 mmol/L (3.3-5.1)
[2025-06-01 08:28] VITALS: BP 136/66; PULSE 65; RESP 16; TEMP 36.6; O2SAT 95
[2025-06-01 08:32] VITALS: PULSE 65
[2025-06-01] MEDS: Calcium Carb/Vitamin D 1 TABLET Tablet PO ×2 (08:32→12:31)
[2025-06-01] MEDS: APIXABAN 2.5 MG TABLET (WCH) PO (08:32)
--- NOTE | 2025-06-01 09:17 | CASEMGMT ---
Discharge Planning Call placed to Tracey @ [facility]. Precert remains pending. Updates sent. Nicki Pizano DC Planning Asst.
--- NOTE | 2025-06-01 10:01 | CASEMGMT ---
Addendum entered by Nicki Pizano 06/01/25 10:12: Bed is available today. SW and physician updated. Nicki Pizano DC Planning Asst. Original Note: Discharge Planning Al[facility] Lang has obtained auth to admit. Waiting on confirmation of bed availability. SW and physician updated. Nicki Pizano DC Planning Asst.
--- NOTE | 2025-06-01 10:53 | PCM.TXEXTCAR ---
Diet Diet Order/Speech Therapy: INPATIENT Hospital Diet / Speech Therapy Order(s) 05/28/25 01:15 Diet: Regular - General Food consistency:: Regular Liquid Consistency:: Regular/Thin Routine Orders/Code Status Code Status: DNRCC-A (DO NOT INTUBATE) DC O2, CPAP, BIPAP needs Home O2 Discharge instructions: No Wound(s) right hip: Wound Type: Surgical Incision Therapies Weight Bearing: Weight bearing as tolerated Physical Therapy: Eval and Treat Occupational Therapy: Eval and Treat Problem/Diagnosis (1) Closed displaced fracture of right femoral neck: Status: Acute Code(s): S72.001A - Fracture of unspecified part of neck of right femur, initial encounter for closed fracture (2) Fall: Status: Acute Code(s): W19.XXXA - Unspecified fall, initial encounter (3) Afib: Status: Acute Code(s): I48.91 - Unspecified atrial fibrillation Plan Patient is a 74-year-old female who presented [facility] ED on 05/26/2025 with right hip pain after a mechanical fall. Hospital course as noted below. Patient discharged to [facility] in stable condition on 06/01. 1. Right femoral neck fracture ? Orthopedic surgery followed. PT/OT/case management follow-up. Hip/pelvic x-ray on admit showed an acute displaced subchondral right femoral neck fracture. S/p right cemented hip hemiarthroplasty with Dr. Swift on 05/27. Tolerated procedure well, no intraoperative complications noted. Pain control with scheduled Tylenol. Notably had postoperative delirium as below so minimized opiate pain medications. DVT prophylaxis not indicated as patient is on Eliquis as below. Medically ready for discharge on 05/29, discharged to SNF in stable condition on 06/01. 2. Postoperative delirium ? Patient had severe agitation and confusion on evening of procedure requiring transfer to the ICU with plan for Precedex. However, she did not require Precedex and improved with Haldol. Was able to be transferred back to the floor the following day. Delirium resolved. 3. New onset A-fib with RVR ? Had episode of A-fib with RVR on the evening of admission prior to surgery. She spontaneously converted to normal sinus rhythm. Echo showed EF 70%, no other concerning findings. [id number] of 4 (age, gender, hypertension history) so patient initiated on Eliquis 2.5 mg twice daily. Home Cardizem held for a period of time due to hypotension, able to be restarted by day of discharge. Continue home Cardizem, Lopressor and Eliquis on discharge. 4. Hypertension/hyperlipidemia ? Home lisinopril and hydrochlorothiazide were held preoperatively, and postoperatively patient remained normotensive to mildly hypotensive. Will continue home Cardizem and Lopressor as above. However, will hold home lisinopril and hydrochlorothiazide on discharge. Will defer to PCP on timing of restarting these if needed. Continue home statin. Total clinical time spent by myself addressing the patient's medical issues, reviewing all the data, and collaborating with patient's care team: 35 minutes. Allergies/Procedures Done in Hospital Allergies No Known Allergies Allergy (Verified 05/26/25 10:54) Procedures: EKG, Transthoracic Echo and - (Right hip hemiarthroplasty, hip x-ray x 2, chest x-ray, CT brain ) Type of Care/Length of Stay Estimated LOS: Convalescent Care Less Than 30 days Type of Care Needed: Skilled Rehab Potential: Fair Prognosis: Fair Additional Orders/Day of Discharge H&P will serve as current which was dated: 05/27/25 Day of Discharge: 06/01/25 Dietary and Speech Recommendations Dietitian Recommendations/Changes: Continue Regular diet; restrict carbohydrates as needed. ONS if PO declines at meals; not indicated at this time. Discharge Plan Admission Admit Date/Time: 05/26/25 13:14 Primary Reason for Your Visit: Fall with hip pain Attending Provider: Conner Burnett Primary Care Provider: Shailesh Walters Consulting Providers: Conner Burnett; Kenrick Swift; Yuni Anaya Discharge Orders/Prescriptions Prescriptions: New acetaminophen 500 mg Tablet 650 mg PO Q6H PRN PRN30 Days Qty: 0 0RF Eliquis 5 mg Tablet 2.5 mg PO BID 30 Days Qty: 30 0RF Continued calcium citrate-vitamin D3 [Calcium Citrate + D] 315-200 mg-unit tablet 1 tab PO TID metformin 500 mg tablet 500 mg PO BID diltiazem HCl [Cardizem CD] 240 mg capsule,extended release 24hr 240 mg PO DAILY pravastatin 80 mg tablet 80 mg PO DAILY Patient Comments: take 1 tablet by mouth once daily metoprolol tartrate 50 mg tablet 50 mg PO BID Held hydrochlorothiazide 25 mg tablet 25 mg PO DAILY Hold Instructions: Resume on 06/15/25. Discussed with PCP prior to restarting. lisinopril 40 mg tablet 40 mg PO DAILY Hold Instructions: Resume on 06/01/25. Discussed with PCP prior to restarting. Referrals / Follow Up: Shailesh Walters MD [Primary Care Provider] - Disposition Disposition (needs filled in before D/C Order can be placed): Group Home Facility
--- NOTE | 2025-06-01 10:53 | PCM.DC.SUM ---
Providers Date of Admission: 05/26/25 Date of Discharge: 06/01/25 Primary Care Physician: Dr. Shailesh Walters MD Consultations 05/26/25 13:44 Consult: Orthopedics Routine Consulting Provider: Kenrick Swift Reason for Consult: right femoral neck fracture EMERGENT Consult: No MD Notified: Yes Date Notified: 05/26/25 Time Notified: 14:03 Method of Notification: Text Reason For Visit: FALL W/ RIGHT HIP FRACTURE Diagnosis Discharge Diagnosis (1) Closed displaced fracture of right femoral neck: Status: Acute Code(s): S72.001A - Fracture of unspecified part of neck of right femur, initial encounter for closed fracture (2) Fall: Status: Acute Code(s): W19.XXXA - Unspecified fall, initial encounter (3) Afib: Status: Acute Code(s): I48.91 - Unspecified atrial fibrillation Medications at Discharge Home Medications calcium 315 mg (as citrate)-vitamin D3 5 mcg (200 unit) tablet (Calcium Citrate + D) 1 tab PO TID 07/29/18 diltiazem HCl 240 mg capsule,extended release 24 hr (Cardizem CD) 240 mg PO DAILY 07/29/18 hydrochlorothiazide 25 mg tablet 25 mg PO DAILY 07/29/18 Held on 06/01/25. Instructions: Resume on 06/15/25. Discussed with PCP prior to restarting. lisinopril 40 mg tablet 40 mg PO DAILY 07/29/18 Held on 06/01/25. Instructions: Resume on 06/01/25. Discussed with PCP prior to restarting. metformin 500 mg tablet 500 mg PO BID 07/29/18 pravastatin 80 mg tablet 80 mg PO DAILY 08/28/23 metoprolol tartrate 50 mg tablet 50 mg PO BID 05/26/25 acetaminophen 500 mg tablet 650 mg (1.3 x 500 mg) PO Q6H PRN PRN 30 days #0 tabs 06/01/25 apixaban 5 mg tablet (Eliquis) 2.5 mg (1/2 x 5 mg) PO BID 30 days #30 tabs 06/01/25 Hospital Course Operations - (Right hip hemiarthroplasty) Procedures EKG, Transthoracic echo and - (Hip x-ray x 2, chest x-ray, CT brain) Summary of Care Provided Minutes Spent on Discharge: 35 Hospital Course: Patient is a 74-year-old female who presented [facility] ED on 05/26/2025 with right hip pain after a mechanical fall. Hospital course as noted below. Patient discharged to [facility] in stable condition on 06/01. 1. Right femoral neck fracture ? Orthopedic surgery followed. PT/OT/case management follow-up. Hip/pelvic x-ray on admit showed an acute displaced subchondral right femoral neck fracture. S/p right cemented hip hemiarthroplasty with Dr. Swift on 05/27. Tolerated procedure well, no intraoperative complications noted. Pain control with scheduled Tylenol. Notably had postoperative delirium as below so minimized opiate pain medications. DVT prophylaxis not indicated as patient is on Eliquis as below. Medically ready for discharge on 05/29, discharged to SNF in stable condition on 06/01. 2. Postoperative delirium ? Patient had severe agitation and confusion on evening of procedure requiring transfer to the ICU with plan for Precedex. However, she did not require Precedex and improved with Haldol. Was able to be transferred back to the floor the following day. Delirium resolved. 3. New onset A-fib with RVR ? Had episode of A-fib with RVR on the evening of admission prior to surgery. She spontaneously converted to normal sinus rhythm. Echo showed EF 70%, no other concerning findings. [id number] of 4 (age, gender, hypertension history) so patient initiated on Eliquis 2.5 mg twice daily. Home Cardizem held for a period of time due to hypotension, able to be restarted by day of discharge. Continue home Cardizem, Lopressor and Eliquis on discharge. 4. Hypertension/hyperlipidemia ? Home lisinopril and hydrochlorothiazide were held preoperatively, and postoperatively patient remained normotensive to mildly hypotensive. Will continue home Cardizem and Lopressor as above. However, will hold home lisinopril and hydrochlorothiazide on discharge. Will defer to PCP on timing of restarting these if needed. Continue home statin. Total clinical time spent by myself addressing the patient's medical issues, reviewing all the data, and collaborating with patient's care team: 35 minutes. Physical Exam Const alert, oriented x3, no apparent distress and average body habitus General Appearance: cooperative and comfortable HEENT normocephalic, head/scalp atraumatic, hearing grossly normal bilaterally, nasal mucous membranes and turbinates normal and moist oral mucous membranes Eyes PERRL, EOMs intact bilaterally and conjunctivae normal Neck full ROM Chest inspection of chest normal Resp normal respiratory effort, normal air movement, no use of accessory muscles and clear to auscultation bilaterally Cardio regular rate, regular rhythm, no murmurs and peripheral pulses 2+ throughout GI normal to inspection, nondistended, normoactive bowel sounds, soft to palpation, non-tender and non-distended Back/Spine normal ROM Extremity Extremity Narrative: Intact dressing over right hip. Skin no rashes or lesions noted Psych mental status grossly normal Weight / BMI Weight Weight: 70.6 kg Body Mass Index (BMI) 25.1 ABG / Lab / Microbiology Data 06/01/25 05:55 06/01/25 05:55 Laboratory: Laboratory Results - last 24 hr 06/01/25 05:55: WBC 8.4, RBC 3.46 L, Hgb 10.7 L, Hct 31.7 L, MCV 91.6, MCH 30.9, MCHC 33.8, RDW Std Deviation 45.6 H, RDW Coeff of Izzy 13.5, Plt Count 234, MPV 11.0, Immature Gran % (Auto) 1.300 H, Neut % (Auto) 64.4, Lymph % (Auto) 20.4, [place] % (Auto) 9.2, Eos % (Auto) 4.1, Baso % (Auto) 0.6, Absolute Neuts (auto) 5.4, Absolute Lymphs (auto) 1.71, Nucleated RBC % 0.2, Sodium 142, Potassium 3.8, Chloride 108, Carbon Dioxide 21.7, Anion Gap 12, BUN 17, Creatinine 0.59 L, Estim Creat Clear Calc 56.01, Est GFR (MDRD) Non-Af 93, BUN/Creatinine Ratio 29.1 H, Glucose 124 H, Calcium 9.0 D/C Instructions DC O2, CPAP, BIPAP Needs Home O2 Discharge instructions: No Meaningful Use Info Meaningful Use Meaningful Use Diagnoses (Choose all that apply): None applicable Discharge Plan Admission Admit Date/Time: 05/26/25 13:14 Primary Reason for Your Visit: Fall with hip pain Attending Provider: Conner Burnett Primary Care Provider: Shailesh Walters Consulting Providers: Conner Burnett; Kenrick Swift; Yuni Anaya Discharge Orders/Prescriptions Prescriptions: New acetaminophen 500 mg Tablet 650 mg PO Q6H PRN PRN30 Days Qty: 0 0RF Eliquis 5 mg Tablet 2.5 mg PO BID 30 Days Qty: 30 0RF Continued calcium citrate-vitamin D3 [Calcium Citrate + D] 315-200 mg-unit tablet 1 tab PO TID metformin 500 mg tablet 500 mg PO BID diltiazem HCl [Cardizem CD] 240 mg capsule,extended release 24hr 240 mg PO DAILY pravastatin 80 mg tablet 80 mg PO DAILY Patient Comments: take 1 tablet by mouth once daily metoprolol tartrate 50 mg tablet 50 mg PO BID Held hydrochlorothiazide 25 mg tablet 25 mg PO DAILY Hold Instructions: Resume on 06/15/25. Discussed with PCP prior to restarting. lisinopril 40 mg tablet 40 mg PO DAILY Hold Instructions: Resume on 06/01/25. Discussed with PCP prior to restarting. Referrals / Follow Up: Shailesh Walters MD [Primary Care Provider] - Disposition Disposition (needs filled in before D/C Order can be placed): Longterm Facility Charges/Coding Visit Charges Inpatient E&M: 52300 Disch Hosp >30min
--- NOTE | 2025-06-01 12:00 | PHA.DC_ITS ---
Pharmacy [facility] has performed discharge medication counseling for this patient. The patient was counseled on the following discharge medications and changes in medications for homegoing review. The Reason for Use, instructions for use, and potential side effects were reviewed for all new medications. The patient's questions regarding all of their medications were answered. 1. Eliquis 5 mg PO BID The patient was able to verbally demonstrate an understanding of their discharge medications. Medications at Discharge Home Medications calcium 315 mg (as citrate)-vitamin D3 5 mcg (200 unit) tablet (Calcium Citrate + D) 1 tab PO TID 07/29/18 diltiazem HCl 240 mg capsule,extended release 24 hr (Cardizem CD) 240 mg PO DAILY 07/29/18 hydrochlorothiazide 25 mg tablet 25 mg PO DAILY 07/29/18 Held on 06/01/25. Instructions: Resume on 06/15/25. Discussed with PCP prior to restarting. lisinopril 40 mg tablet 40 mg PO DAILY 07/29/18 Held on 06/01/25. Instructions: Resume on 06/01/25. Discussed with PCP prior to restarting. metformin 500 mg tablet 500 mg PO BID 07/29/18 pravastatin 80 mg tablet 80 mg PO DAILY 08/28/23 metoprolol tartrate 50 mg tablet 50 mg PO BID 05/26/25 acetaminophen 500 mg tablet 650 mg (1.3 x 500 mg) PO Q6H PRN PRN 30 days #0 tabs 06/01/25 apixaban 5 mg tablet (Eliquis) 5 mg PO BID 30 days #60 tabs 06/01/25
--- NOTE | 2025-06-01 12:03 | CASEMGMT ---
Discharge Planning Discharge orders, signed med list, and transport time sent to [facility]. Physicians will transport pt by wheelchair at 12:30p. Nursing, SW, pt, and her daughter (Sarah) updated. Nicki Pizano DC Planning Asst.
--- NOTE | 2025-06-01 12:25 | NURSING ---
Report called to Al[facility], all questions answered at this time. Aware of potential pickup time 1230.
[2025-06-01 12:34] VITALS: BP 123/64; PULSE 59; RESP 16; TEMP 36.4; O2SAT 95
== END 2025-06-01 14:21 | disposition skilled nursing facility (03) | DRG 522 ==
LOC: ED 13:18 → MS3 13:27 → PCU 05-27 05:24 → ICU 05-27 20:36 → PCU 05-28 15:38
PROVIDERS: Orthopaedic Surgery Orthopaedic Surgery of the Spine; Student in an Organized Health Care Education/Training Program; Admitting Provider Hospitalist; Emergency Provider Emergency Medicine; PCP Family Medicine; Visit Provider Hospitalist
PROC: 0SRR019 Replacement of Right Hip Joint, Femoral Surface with Metal Synthetic Substitute, Cemented, Open Approach (ICD-10-PCS; CPT 27125; principal; 2025-05-27 11:10)
DX: S72.001A Fracture of unspecified part of neck of right femur, initial encounter for closed fracture (principal); G93.40 Encephalopathy, unspecified; F05 Delirium due to known physiological condition; Z66 Do not resuscitate; I10 Essential (primary) hypertension; I48.91 Unspecified atrial fibrillation; E78.5 Hyperlipidemia, unspecified; W19.XXXA Unspecified fall, initial encounter; R73.03 Prediabetes; Z79.899 Other long term (current) drug therapy; Z82.49 Family history of ischemic heart disease and other diseases of the circulatory system; R45.1 Restlessness and agitation
CPT/HCPCS: 36415; 70450; 71045; 73502; 73600; 80048; 80076; 82306; 82550; 83036; 85025; 85027; 85610; 85730; 86850; 86900; 86901; 88307; 88311; 93005; 93306; 94668; 94762; 97116; 97162; 97166; 97530; 97535; 97802; 99285; C1776; A4216; J2405